=== PATIENT | male | born 1945 | race Caucasian/White ===

== ENCOUNTER 2018-11-09 19:44 | Inpatient (IN) ==
[2018-11-10] MEDS: DEXTROSE 5% NACL 0.45% 1,000 ML IV SCH ×3 (02:19→15:05)
[2018-11-10] MEDS: cefOXitin 1,000 MG in SYRINGE 1 EACH IV SCH (02:19)
[2018-11-10] MEDS: VANCOMYCIN INJ 1,250 MG in SODIUM CHLORIDE 0.9% 250 ML IV SCH ×2 (02:23→15:03)
[2018-11-10 04:49] LABS: Basophils % 0.1 % (0.0-0.8); Eosinophils % 0.3 % (0.00-10.9); Hematocrit 29.6 VOL% (42.0-52.0); Hemoglobin 9.6 GM/DL (14.0-18.0); Immature Granulocytes Absolute 0.07 #; Lymphocytes # 0.4 10*3/uL (1.4-4.0); Lymphocytes % 5.5 % (21.2-54.2); Mean Corpuscular HGB Conc 32.4 GM/DL (32-36); Mean Corpuscular Volume 98.7 FL (87-102); Mean Platelet Volume 10.5 FL (9.6-12.0); Monocytes % 1.5 % (1.7-12.7); Neutrophils % 91.6 % (38.7-73.9); Platelet Count 181 T/CUMM (130-400); Red Cell Distribution Width 13.7 % (9.3-17.3); White Blood Count 6.9 T/CUMM (4-12)
[2018-11-10 05:13] LABS: Calcium 7.9 MG/DL (8.5-10.1); Osmolality,Calculated 275.8 MOS/KG (273-304)
[2018-11-10 05:23] LABS: Band Neutrophils 1 % (0-10); Lymphocytes 5 % (20-55); Platelet Estimate Adequate; Polychromasia Few; Segmented Neutrophils 91 % (50-85); Total Cells Counted 100
[2018-11-10] MEDS ORDERED: LIDOCAINE 1%/EPI INJ 20 ML VIAL ONE (08:55)
[2018-11-10] MEDS ORDERED: BUPIVACAINE 0.25% /EPI 10 ML VIAL ONE (08:55)
[2018-11-10] MEDS ORDERED: PROPOFOL 1,000 MG/100 ML BOTTLE IV ONE (11:41)
[2018-11-10] MEDS ORDERED: ALBUMIN 5% 12.5 GM in PREMIX 1 EACH IV ONE (12:13)
[2018-11-10] MEDS ORDERED: ONDANSETRON 4 MG/2 ML VIAL IV PRN (12:16)
[2018-11-10 12:18] LABS: Amorphous Crystals,Urine Occasional /HPF (Few); Apearance,Urine Slightly Hazy (Clear); Bacteria,Urine Occasional /HPF (Few); Bilirubin,Urine Negative (Negative); Blood, Urine Large mg/dL (Negative); Glucose,Urine (UA) Negative (Negative); Ketones,Urine Negative (Negative); Mucus,Urine Few /LPF (Occasional); Nitrite,Urine Negative (Negative); Protein,Urine 30 MG/DL; RBC,Urine 122 /HPF (0-4); Squamous Epithelial Cell,Urine Occasional /HPF (0-10); Urine Color Yellow (Yellow); Urine Specific Gravity 1.038 (1.001-1.035); Urine Urobilinogen < 2.0 EU/DL (0.2-1.0); WBC,Urine 5 /HPF (0-6)
[2018-11-10] MEDS ORDERED: PHENYLEPHRINE DRIP 20 MG/250 ML PREMIX IV ONE (12:19)
[2018-11-10] MEDS ORDERED: SEVOFLURANE 1 UNIT/15 MINUTE INH ONE (12:19)
[2018-11-10] MEDS ORDERED: diphenhydrAMINE 50 MG/1 ML VIAL ONE (12:20)
[2018-11-10] MEDS ORDERED: fentaNYL 100 MCG/2 ML VIAL ONE (12:20)
[2018-11-10] MEDS ORDERED: PHENYLEPHRINE 1 MG/10 ML SYRINGE IV ONE (12:20)
[2018-11-10] MEDS ORDERED: ROCURONIUM 100 MG/10 ML VIAL IV ONE (12:20)
[2018-11-10] MEDS ORDERED: SUCCINYLCHOLINE 200 MG/10 ML VIAL ONE (12:20)
[2018-11-10] MEDS ORDERED: ETOMIDATE 40 MG/20 ML VIAL IV ONE (12:20)
[2018-11-10] MEDS ORDERED: MIDAZOLAM 2 MG/2 ML VIAL ONE (12:20)
[2018-11-10] MEDS ORDERED: HYDROCORTISONE 100 MG VIAL ONE (12:20)
[2018-11-10] MEDS ORDERED: LACTATED RINGERS 2,000 ML IV ONE (12:20)
[2018-11-10] MEDS: PROPOFOL 1,000 MG/100 ML BOTTLE IV SCH (12:30)
[2018-11-10] MEDS: HYDROmorphone 2 MG/1 ML VIAL IV PRN ×2 (12:35→12:40)
[2018-11-10 12:51] LABS: ABG Base Excess -0.7 MMOL/L (-2.5-2.5); ABG HCO3 23.9 MMOL/L (20-26); ABG PCO2 45.9 MM HG (35-48); ABG PH 7.347 (7.35-7.45); ABG TCO2 23.2 MMOL/L (23-27)
[2018-11-10] MEDS: MORPHINE 4 MG/1 ML VIAL IV PRN (13:40)
[2018-11-10] MEDS: DEXTROSE 5% LACTATED RINGERS 1,000 ML IV SCH (13:49)
[2018-11-10 13:53] LABS: Albumin 1.9 G/DL (3.4-5.0); Bilirubin,Total 0.8 MG/DL (0.2-1.0); Osmolality,Calculated 276.1 MOS/KG (273-304); Total Protein 5.4 G/DL (6.4-8.3)
[2018-11-10] MEDS ORDERED: MIDAZOLAM 100 MG in SODIUM CHLORIDE 0.9% 80 ML IV PRN (15:31)
[2018-11-10] MEDS: metroNIDAZOLE INJ 500 MG in PREMIX 1 EACH IV SCH (18:25)
[2018-11-10] MEDS: ZINC OXIDE PASTE 113 GM TUBE TOP SCH (20:32)
[2018-11-11] MEDS: DEXTROSE 5% NACL 0.45% 1,000 ML IV SCH ×3 (00:20→15:33)
[2018-11-11] MEDS: DEXTROSE 5% LACTATED RINGERS 1,000 ML IV SCH ×5 (00:20→17:54)
[2018-11-11] MEDS: metroNIDAZOLE INJ 500 MG in PREMIX 1 EACH IV SCH (02:28)
[2018-11-11] MEDS: VANCOMYCIN INJ 1,250 MG in SODIUM CHLORIDE 0.9% 250 ML IV SCH ×2 (02:29→15:33)
[2018-11-11 03:14] LABS: ABG Base Excess 1.7 MMOL/L (-2.5-2.5); ABG HCO3 25.7 MMOL/L (20-26); ABG PCO2 44.4 MM HG (35-48); ABG PH 7.391 (7.35-7.45); ABG PO2 44.1 MM HG (80-95); ABG TCO2 25.2 MMOL/L (23-27); Allen Test Positive; Pt O2 Delivery Device Ventilator
[2018-11-11] MEDS: ENOXAPARIN 40 MG/0.4 ML SYRINGE SUBCUT SCH (06:16)
[2018-11-11 07:43] LABS: Hematocrit 24.7 VOL% (42.0-52.0); Hemoglobin 7.7 GM/DL (14.0-18.0); Immature Granulocytes % 0.9 %; Immature Granulocytes Absolute 0.03 #; Lymphocytes # 0.5 10*3/uL (1.4-4.0); Mean Corpuscular HGB Conc 31.2 GM/DL (32-36); Mean Corpuscular Volume 100.8 FL (87-102); Mean Platelet Volume 10.3 FL (9.6-12.0); Monocytes % 3.8 % (1.7-12.7); Neutrophils % 82.3 % (38.7-73.9); Platelet Count 142 T/CUMM (130-400); Red Blood Count 2.45 MC/CUMM (3.8-5.5); Red Cell Distribution Width 13.7 % (9.3-17.3); White Blood Count 3.5 T/CUMM (4-12)
[2018-11-11 08:03] LABS: Band Neutrophils 1 % (0-10); Hypochromasia 1+; Lymphocytes 11 % (20-55); Platelet Estimate Adequate; Segmented Neutrophils 85 % (50-85); Total Cells Counted 100
[2018-11-11 08:11] LABS: Calcium 7.8 MG/DL (8.5-10.1); Osmolality,Calculated 290.3 MOS/KG (273-304)
[2018-11-11 09:09] LABS: ABG Base Excess 3.1 MMOL/L (-2.5-2.5); ABG HCO3 27.2 MMOL/L (20-26); ABG Oxygen Saturation 99.6 % (95-100); ABG PCO2 34.8 MM HG (35-48); ABG PH 7.487 (7.35-7.45); ABG TCO2 24.5 MMOL/L (23-27); Allen Test Positive; Pt O2 Delivery Device Ventilator
[2018-11-11] MEDS: FAMOTIDINE 20 MG/2 ML VIAL IV SCH ×2 (09:18→21:42)
[2018-11-11] MEDS: ZINC OXIDE PASTE 113 GM TUBE TOP SCH ×2 (09:23→21:42)
[2018-11-11] MEDS: methylPREDNISolone SOD SUC 40 MG/1 ML VIAL IV SCH ×2 (09:31→17:02)
[2018-11-11] MEDS ORDERED: LEVOFLOXACIN INJ 500 MG in PREMIX 1 EACH IV ONE (10:00)
[2018-11-11] MEDS: cefOXitin 1,000 MG in SYRINGE 1 EACH IV SCH (10:39)
[2018-11-11] MEDS: PROPOFOL 1,000 MG/100 ML BOTTLE IV SCH (12:42)
[2018-11-11] MEDS: MORPHINE 4 MG/1 ML VIAL IV PRN ×3 (13:25→22:38)
[2018-11-12] MEDS: methylPREDNISolone SOD SUC 40 MG/1 ML VIAL IV SCH ×3 (00:08→16:15)
[2018-11-12] MEDS: PROPOFOL 1,000 MG/100 ML BOTTLE IV SCH (00:10)
[2018-11-12] MEDS: DEXTROSE 5% NACL 0.45% 1,000 ML IV SCH ×4 (00:18→23:26)
[2018-11-12] MEDS: VANCOMYCIN INJ 1,250 MG in SODIUM CHLORIDE 0.9% 250 ML IV SCH ×2 (01:30→13:50)
[2018-11-12] MEDS: DEXTROSE 5% LACTATED RINGERS 1,000 ML IV SCH ×4 (01:49→10:35)
[2018-11-12 03:26] LABS: ABG Base Excess 1.9 MMOL/L (-2.5-2.5); ABG HCO3 26.1 MMOL/L (20-26); ABG Oxygen Saturation 99.4 % (95-100); ABG PH 7.497 (7.35-7.45); ABG TCO2 22.9 MMOL/L (23-27); Pt O2 Delivery Device Ventilator
[2018-11-12] MEDS: ENOXAPARIN 40 MG/0.4 ML SYRINGE SUBCUT SCH (06:27)
[2018-11-12 08:08] LABS: Basophils % 0.2 % (0.0-0.8); Hematocrit 28.1 VOL% (42.0-52.0); Immature Granulocytes % 1.5 %; Immature Granulocytes Absolute 0.08 #; Lymphocytes # 0.6 10*3/uL (1.4-4.0); Lymphocytes % 11.2 % (21.2-54.2); Mean Corpuscular Volume 99.6 FL (87-102); Mean Platelet Volume 11.8 FL (9.6-12.0); Monocytes % 2.8 % (1.7-12.7); Neutrophils % 84.3 % (38.7-73.9); Platelet Count 208 T/CUMM (130-400); Red Blood Count 2.82 MC/CUMM (3.8-5.5); Red Cell Distribution Width 14.1 % (9.3-17.3); White Blood Count 5.4 T/CUMM (4-12)
[2018-11-12] MEDS: FAMOTIDINE 20 MG/2 ML VIAL IV SCH ×2 (08:14→21:18)
[2018-11-12] MEDS: ZINC OXIDE PASTE 113 GM TUBE TOP SCH ×2 (08:22→21:25)
[2018-11-12 09:14] LABS: Band Neutrophils 5 % (0-10); Lymphocytes 9 % (20-55); Metamyelocytes 4 %; Segmented Neutrophils 82 % (50-85); Total Cells Counted 100
[2018-11-12 09:17] LABS: Nucleated Red Blood Cells 4 (0-5)
[2018-11-12 09:22] LABS: Burr Cells 1+; Platelet Estimate Normal; Polychromasia Slight
[2018-11-13] MEDS: DEXTROSE 5% LACTATED RINGERS 1,000 ML IV SCH ×2 (00:05→14:32)
[2018-11-13] MEDS: methylPREDNISolone SOD SUC 40 MG/1 ML VIAL IV SCH ×2 (01:01→13:05)
[2018-11-13] MEDS: VANCOMYCIN INJ 1,250 MG in SODIUM CHLORIDE 0.9% 250 ML IV SCH ×2 (02:44→14:44)
[2018-11-13 05:23] LABS: Calcium 7.9 MG/DL (8.5-10.1); Osmolality,Calculated 298.8 MOS/KG (273-304)
[2018-11-13] MEDS: ENOXAPARIN 40 MG/0.4 ML SYRINGE SUBCUT SCH (05:52)
[2018-11-13] MEDS: FAMOTIDINE 20 MG/2 ML VIAL IV SCH ×2 (08:05→20:48)
[2018-11-13] MEDS: DEXTROSE 5% NACL 0.45% 1,000 ML IV SCH (08:10)
[2018-11-13] MEDS: ZINC OXIDE PASTE 113 GM TUBE TOP SCH ×2 (08:11→20:50)
[2018-11-13] MEDS: LEVOFLOXACIN INJ 500 MG in PREMIX 1 EACH IV SCH (10:05)
[2018-11-13] MEDS: metroNIDAZOLE INJ 500 MG in PREMIX 1 EACH IV SCH ×2 (11:21→18:31)
[2018-11-14] MEDS: methylPREDNISolone SOD SUC 40 MG/1 ML VIAL IV SCH (02:32)
[2018-11-14] MEDS: metroNIDAZOLE INJ 500 MG in PREMIX 1 EACH IV SCH (02:35)
[2018-11-14] MEDS: ENOXAPARIN 40 MG/0.4 ML SYRINGE SUBCUT SCH (06:50)
[2018-11-14] MEDS: FAMOTIDINE 20 MG/2 ML VIAL IV SCH ×2 (09:12→21:12)
[2018-11-14] MEDS: LEVOFLOXACIN INJ 500 MG in PREMIX 1 EACH IV SCH (09:16)
[2018-11-14] MEDS: ZINC OXIDE PASTE 113 GM TUBE TOP SCH ×2 (09:16→21:11)
[2018-11-14] MEDS: DEXTROSE 5% LACTATED RINGERS 1,000 ML IV SCH (10:54)
[2018-11-14] MEDS: MEROPENEM 1,000 MG in SODIUM CHLORIDE 0.9% 100 ML IV SCH ×2 (11:05→19:21)
[2018-11-14] MEDS ORDERED: VANCOMYCIN INJ 1,250 MG in SODIUM CHLORIDE 0.9% 250 ML IV SCH (12:00)
[2018-11-14 12:56] LABS: % Iron Saturation 109.3 % (18-50); Ferritin 1132.8 ng/ml (26-388)
[2018-11-14 13:20] LABS: Folate 8.2 NG/ML (5.4-24.0)
[2018-11-15] MEDS: MEROPENEM 1,000 MG in SODIUM CHLORIDE 0.9% 100 ML IV SCH ×3 (02:27→18:14)
[2018-11-15] MEDS: DEXTROSE 5% LACTATED RINGERS 1,000 ML IV SCH ×2 (05:31→09:17)
[2018-11-15 05:44] LABS: Basophils % 0.1 % (0.0-0.8); Eosinophils % 0.2 % (0.00-10.9); Hemoglobin 10.3 GM/DL (14.0-18.0); Immature Granulocytes % 1.2 %; Immature Granulocytes Absolute 0.11 #; Lymphocytes # 0.9 10*3/uL (1.4-4.0); Lymphocytes % 10.1 % (21.2-54.2); Mean Corpuscular HGB Conc 31.2 GM/DL (32-36); Mean Corpuscular Volume 101.2 FL (87-102); Mean Platelet Volume 10.4 FL (9.6-12.0); Monocytes % 2.9 % (1.7-12.7); Neutrophils % 85.5 % (38.7-73.9); Platelet Count 217 T/CUMM (130-400); Red Blood Count 3.26 MC/CUMM (3.8-5.5); Red Cell Distribution Width 13.7 % (9.3-17.3); White Blood Count 9.3 T/CUMM (4-12)
[2018-11-15] MEDS: ENOXAPARIN 40 MG/0.4 ML SYRINGE SUBCUT SCH (06:11)
[2018-11-15 06:12] LABS: Anisocytosis 1+; Band Neutrophils 6 % (0-10); Lymphocytes 7 % (20-55); Platelet Estimate Adequate; Segmented Neutrophils 86 % (50-85); Total Cells Counted 100
[2018-11-15 06:17] LABS: Calcium 8.1 MG/DL (8.5-10.1)
[2018-11-15] MEDS: FAMOTIDINE 20 MG/2 ML VIAL IV SCH ×2 (08:48→21:26)
[2018-11-15] MEDS: ZINC OXIDE PASTE 113 GM TUBE TOP SCH ×2 (09:21→21:26)
[2018-11-15] MEDS ORDERED: FUROSEMIDE 40 MG/4 ML VIAL IV ONE (14:04)
[2018-11-15] MEDS: VANCOMYCIN INJ 1,250 MG in SODIUM CHLORIDE 0.9% 250 ML IV SCH (22:21)
[2018-11-16] MEDS: MEROPENEM 1,000 MG in SODIUM CHLORIDE 0.9% 100 ML IV SCH ×3 (03:29→19:28)
[2018-11-16 05:23] LABS: Basophils % 0.2 % (0.0-0.8); Eosinophils % 0.6 % (0.00-10.9); Hematocrit 27.9 VOL% (42.0-52.0); Hemoglobin 8.8 GM/DL (14.0-18.0); Immature Granulocytes % 2.6 %; Immature Granulocytes Absolute 0.16 #; Lymphocytes # 0.9 10*3/uL (1.4-4.0); Lymphocytes % 13.6 % (21.2-54.2); Mean Corpuscular HGB Conc 31.5 GM/DL (32-36); Mean Corpuscular Volume 101.1 FL (87-102); Mean Platelet Volume 10.6 FL (9.6-12.0); Monocytes % 3.2 % (1.7-12.7); Neutrophils % 79.8 % (38.7-73.9); Platelet Count 173 T/CUMM (130-400); Red Blood Count 2.76 MC/CUMM (3.8-5.5); Red Cell Distribution Width 13.8 % (9.3-17.3); White Blood Count 6.2 T/CUMM (4-12)
[2018-11-16 05:38] LABS: Calcium 7.8 MG/DL (8.5-10.1); Osmolality,Calculated 282.4 MOS/KG (273-304)
[2018-11-16 05:55] LABS: Anisocytosis 1+; Platelet Estimate Adequate
[2018-11-16] MEDS: ENOXAPARIN 40 MG/0.4 ML SYRINGE SUBCUT SCH (06:26)
[2018-11-16] MEDS: ZINC OXIDE PASTE 113 GM TUBE TOP SCH ×2 (09:32→20:33)
[2018-11-16] MEDS: FAMOTIDINE 20 MG/2 ML VIAL IV SCH ×2 (09:32→20:31)
[2018-11-16] MEDS ORDERED: POTASSIUM CHLORIDE 20 MEQ TABLET PO ONE (13:05)
[2018-11-17] MEDS: MEROPENEM 1,000 MG in SODIUM CHLORIDE 0.9% 100 ML IV SCH ×2 (02:31→11:53)
[2018-11-17] MEDS: ENOXAPARIN 40 MG/0.4 ML SYRINGE SUBCUT SCH (06:12)
[2018-11-17] MEDS: FAMOTIDINE 20 MG/2 ML VIAL IV SCH (09:23)
[2018-11-17] MEDS: ZINC OXIDE PASTE 113 GM TUBE TOP SCH (09:23)
[2018-11-17 15:57] VITALS: BP 148/73
== END 2018-11-17 16:10 | disposition swing bed (61) | DRG 329 ==
LOC: N.3E 20:59 → N.ICU 11-10 12:55 → N.3E 11-13 15:16
PROVIDERS: ADMIT Surgery; ATTEND Surgery

== ENCOUNTER 2018-11-28 09:37 | Inpatient (IN) ==
[2018-11-28] MEDS ORDERED: ONDANSETRON 4 MG/2 ML VIAL IV PRN (14:14)
[2018-11-28] MEDS ORDERED: ACETAMINOPHEN 325 MG TABLET PO PRN (14:14)
[2018-11-28 15:36] LABS: Basophils % 0.9 % (0.0-0.8); Eosinophils % 1.9 % (0.00-10.9); Hematocrit 26.8 VOL% (42.0-52.0); Hemoglobin 8.3 GM/DL (14.0-18.0); Immature Granulocytes % 0.9 %; Immature Granulocytes Absolute 0.01 #; Lymphocytes # 0.5 10*3/uL (1.4-4.0); Lymphocytes % 41.7 % (21.2-54.2); Mean Corpuscular Volume 102.7 FL (87-102); Mean Platelet Volume 9.6 FL (9.6-12.0); Monocytes % 4.6 % (1.7-12.7); Platelet Count 148 T/CUMM (130-400); Red Blood Count 2.61 MC/CUMM (3.8-5.5); Red Cell Distribution Width 13.7 % (9.3-17.3); White Blood Count 1.1 T/CUMM (4-12)
[2018-11-28 16:10] LABS: Albumin 2.1 G/DL (3.4-5.0); Bilirubin,Total 0.4 MG/DL (0.2-1.0); Calcium 8.3 MG/DL (8.5-10.1); Osmolality,Calculated 276.8 MOS/KG (273-304); Total Protein 6.5 G/DL (6.4-8.3)
[2018-11-28 17:31] LABS: Apearance,Urine CLEAR (Clear); Bilirubin,Urine Negative (Negative); Blood, Urine Small mg/dL (Negative); Glucose,Urine (UA) Negative (Negative); Hyaline Casts,Urine 4 /LPF (0-3); Ketones,Urine Negative (Negative); Mucus,Urine Occasional /LPF (Occasional); Nitrite,Urine Negative (Negative); Protein,Urine Negative; RBC,Urine 5 /HPF (0-4); Squamous Epithelial Cell,Urine Occasional /HPF (0-10); Urine Color Yellow (Yellow); Urine Specific Gravity 1.015 (1.001-1.035); Urine Urobilinogen < 2.0 EU/DL (<2.0); WBC,Urine 1 /HPF (0-6)
[2018-11-28 18:48] LABS: Band Neutrophils 2 % (0-10); Eosinophils 2 % (0-10); Lymphocytes 45 % (20-55); Macrocytosis 2+; Segmented Neutrophils 45 % (50-85); Total Cells Counted 100
[2018-11-28 18:49] LABS: Platelet Estimate Adequate; Polychromasia Slight
[2018-11-28 18:54] LABS: % Iron Saturation 10.2 % (18-50); Ferritin 925.7 ng/ml (26-388)
[2018-11-28] MEDS ORDERED: SODIUM CHLORIDE 0.9% 500 ML IV ONE (20:32)
[2018-11-29 05:34] LABS: Eosinophils % 2.9 % (0.00-10.9); Hematocrit 22.9 VOL% (42.0-52.0); Hemoglobin 7.4 GM/DL (14.0-18.0); Immature Granulocytes Absolute 0.01 #; Lymphocytes # 0.6 10*3/uL (1.4-4.0); Lymphocytes % 61.5 % (21.2-54.2); Mean Corpuscular HGB Conc 32.3 GM/DL (32-36); Mean Corpuscular Volume 99.1 FL (87-102); Mean Platelet Volume 10.1 FL (9.6-12.0); Monocytes % 6.7 % (1.7-12.7); Neutrophils % 27.9 % (38.7-73.9); Platelet Count 144 T/CUMM (130-400); Red Blood Count 2.31 MC/CUMM (3.8-5.5); Red Cell Distribution Width 13.4 % (9.3-17.3)
[2018-11-29 05:43] LABS: Albumin 1.9 G/DL (3.4-5.0); Bilirubin,Total 0.8 MG/DL (0.2-1.0); Calcium 8.1 MG/DL (8.5-10.1); Osmolality,Calculated 276.7 MOS/KG (273-304); Risk Ratio 2.36; Thyroid Stimulating Hormone 3.14 uIU/ml (0.358-3.74); Total Protein 5.8 G/DL (6.4-8.3); VLDL CHOLESTEROL 11.2 MG/DL
[2018-11-29 05:55] LABS: Anisocytosis 1+; Platelet Estimate Adequate
[2018-11-29] MEDS: PANTOPRAZOLE 40 MG TABLET PO SCH (08:37)
[2018-11-29] MEDS: CYANOCOBALAMIN 1000 MCG/1 ML VIAL IM SCH (10:51)
[2018-11-29] MEDS: CEFEPIME 1,000 MG in SODIUM CHLORIDE 0.9% 100 ML IV SCH ×2 (12:55→18:06)
[2018-11-29] MEDS: SODIUM CHLORIDE 0.9% 1,000 ML IV SCH ×2 (12:55→20:51)
[2018-11-30] MEDS: CEFEPIME 1,000 MG in SODIUM CHLORIDE 0.9% 100 ML IV SCH ×4 (00:53→19:21)
[2018-11-30] MEDS: SODIUM CHLORIDE 0.9% 1,000 ML IV SCH (05:06)
[2018-11-30 07:25] LABS: Eosinophils % 1.9 % (0.00-10.9); Hematocrit 25.5 VOL% (42.0-52.0); Hemoglobin 7.9 GM/DL (14.0-18.0); Immature Granulocytes % 0.9 %; Immature Granulocytes Absolute 0.01 #; Lymphocytes # 0.7 10*3/uL (1.4-4.0); Lymphocytes % 60.2 % (21.2-54.2); Mean Corpuscular Volume 101.6 FL (87-102); Mean Platelet Volume 9.2 FL (9.6-12.0); Monocytes % 9.3 % (1.7-12.7); Neutrophils % 27.7 % (38.7-73.9); Platelet Count 134 T/CUMM (130-400); Red Blood Count 2.51 MC/CUMM (3.8-5.5); Red Cell Distribution Width 13.5 % (9.3-17.3); White Blood Count 1.1 T/CUMM (4-12)
[2018-11-30 07:54] LABS: Band Neutrophils 1 % (0-10); Eosinophils 3 % (0-10); Hypochromasia 1+; Lymphocytes 58 % (20-55); Platelet Estimate Adequate; Segmented Neutrophils 32 % (50-85); Total Cells Counted 100
[2018-11-30] MEDS: PANTOPRAZOLE 40 MG TABLET PO SCH (08:52)
[2018-11-30] MEDS: FILGRASTIM-SNDZ 480 MCG/0.8 ML SYRINGE SUBCUT SCH (08:53)
[2018-11-30] MEDS: CYANOCOBALAMIN 1000 MCG/1 ML VIAL IM SCH (08:54)
[2018-11-30] MEDS: TRIAMCINOLONE 0.1% CREAM 15 GM TUBE TOP SCH (20:49)
[2018-11-30] MEDS: ESCITALOPRAM 10 MG TABLET PO SCH (20:49)
[2018-11-30] MEDS ORDERED: VANCOMYCIN INJ 1,000 MG in SODIUM CHLORIDE 0.9% 250 ML IV ONE (22:00)
[2018-12-01] MEDS: CEFEPIME 1,000 MG in SODIUM CHLORIDE 0.9% 100 ML IV SCH ×4 (01:30→20:56)
[2018-12-01 04:51] LABS: Basophils % 0.2 % (0.0-0.8); Eosinophils # 0.1 10*3/uL (0.0-0.87); Eosinophils % 1.3 % (0.00-10.9); Hematocrit 23.9 VOL% (42.0-52.0); Hemoglobin 7.6 GM/DL (14.0-18.0); Immature Granulocytes Absolute 0.05 #; Lymphocytes % 20.7 % (21.2-54.2); Mean Corpuscular HGB Conc 31.8 GM/DL (32-36); Mean Corpuscular Volume 99.2 FL (87-102); Mean Platelet Volume 9.4 FL (9.6-12.0); Monocytes % 2.3 % (1.7-12.7); Neutrophils % 74.5 % (38.7-73.9); Platelet Count 148 T/CUMM (130-400); Red Blood Count 2.41 MC/CUMM (3.8-5.5); Red Cell Distribution Width 13.3 % (9.3-17.3); White Blood Count 4.8 T/CUMM (4-12)
[2018-12-01 05:17] LABS: Calcium 8.1 MG/DL (8.5-10.1); Osmolality,Calculated 280.4 MOS/KG (273-304)
[2018-12-01 05:32] LABS: Band Neutrophils 13 % (0-10); Eosinophils 2 % (0-10); Lymphocytes 15 % (20-55); Metamyelocytes 2 %; Myelocytes 1 %; Segmented Neutrophils 64 % (50-85); Total Cells Counted 100
[2018-12-01 05:34] LABS: Hypochromasia 1+; Platelet Estimate Normal; Reactive Lymphocytes 1+
[2018-12-01] MEDS: FILGRASTIM-SNDZ 480 MCG/0.8 ML SYRINGE SUBCUT SCH (09:48)
[2018-12-01] MEDS: CYANOCOBALAMIN 1000 MCG/1 ML VIAL IM SCH (09:49)
[2018-12-01] MEDS: PANTOPRAZOLE 40 MG TABLET PO SCH (09:52)
[2018-12-01] MEDS: TRIAMCINOLONE 0.1% CREAM 15 GM TUBE TOP SCH (09:54)
[2018-12-01] MEDS: VANCOMYCIN INJ 1,250 MG in SODIUM CHLORIDE 0.9% 250 ML IV SCH ×2 (09:57→20:00)
[2018-12-01 12:39] LABS: Anti SS-A Antibodies < 16 EU/ML
[2018-12-01] MEDS: ESCITALOPRAM 10 MG TABLET PO SCH (20:53)
[2018-12-02 04:42] LABS: Basophils % 0.2 % (0.0-0.8); Eosinophils # 0.1 10*3/uL (0.0-0.87); Eosinophils % 1.7 % (0.00-10.9); Hematocrit 24.7 VOL% (42.0-52.0); Hemoglobin 7.6 GM/DL (14.0-18.0); Immature Granulocytes % 3.7 %; Immature Granulocytes Absolute 0.19 #; Lymphocytes # 1.1 10*3/uL (1.4-4.0); Lymphocytes % 21.6 % (21.2-54.2); Mean Corpuscular HGB Conc 30.8 GM/DL (32-36); Mean Corpuscular Volume 99.6 FL (87-102); Mean Platelet Volume 9.7 FL (9.6-12.0); Monocytes % 2.5 % (1.7-12.7); Neutrophils % 70.3 % (38.7-73.9); Platelet Count 158 T/CUMM (130-400); Red Blood Count 2.48 MC/CUMM (3.8-5.5); Red Cell Distribution Width 13.4 % (9.3-17.3); White Blood Count 5.2 T/CUMM (4-12)
[2018-12-02 05:17] LABS: Anisocytosis 1+; Band Neutrophils 15 % (0-10); Hypochromasia 2+; Lymphocytes 17 % (20-55); Macrocytosis 1+; Metamyelocytes 1 %; Ovalocytes 1+; Platelet Estimate Adequate; Segmented Neutrophils 64 % (50-85); Total Cells Counted 100
[2018-12-02] MEDS: TRIAMCINOLONE 0.1% CREAM 15 GM TUBE TOP SCH ×2 (05:48→08:45)
[2018-12-02] MEDS: CEFEPIME 1,000 MG in SODIUM CHLORIDE 0.9% 100 ML IV SCH ×2 (05:49→08:44)
[2018-12-02] MEDS: FILGRASTIM-SNDZ 480 MCG/0.8 ML SYRINGE SUBCUT SCH (08:44)
[2018-12-02] MEDS: CYANOCOBALAMIN 1000 MCG/1 ML VIAL IM SCH (08:44)
[2018-12-02] MEDS: PANTOPRAZOLE 40 MG TABLET PO SCH (08:44)
[2018-12-02] MEDS: VANCOMYCIN INJ 1,250 MG in SODIUM CHLORIDE 0.9% 250 ML IV SCH (10:15)
[2018-12-02] MEDS: LINEZOLID INJ 600 MG in PREMIX 1 EACH IV SCH (14:17)
[2018-12-02] MEDS: ESCITALOPRAM 10 MG TABLET PO SCH (21:20)
[2018-12-03] MEDS: TRIAMCINOLONE 0.1% CREAM 15 GM TUBE TOP SCH ×3 (01:45→21:13)
[2018-12-03] MEDS: LINEZOLID INJ 600 MG in PREMIX 1 EACH IV SCH ×2 (01:46→13:23)
[2018-12-03 06:33] LABS: Basophils % 0.3 % (0.0-0.8); Eosinophils # 0.1 10*3/uL (0.0-0.87); Eosinophils % 1.3 % (0.00-10.9); Hemoglobin 7.7 GM/DL (14.0-18.0); Immature Granulocytes % 1.5 %; Immature Granulocytes Absolute 0.09 #; Lymphocytes # 1.3 10*3/uL (1.4-4.0); Mean Corpuscular HGB Conc 30.8 GM/DL (32-36); Mean Corpuscular Volume 100.4 FL (87-102); Mean Platelet Volume 9.8 FL (9.6-12.0); Neutrophils % 69.9 % (38.7-73.9); Platelet Count 170 T/CUMM (130-400); Red Blood Count 2.49 MC/CUMM (3.8-5.5); Red Cell Distribution Width 13.6 % (9.3-17.3)
[2018-12-03] MEDS ORDERED: SODIUM CHLORIDE 0.9% 250 ML IV ONE (07:29)
[2018-12-03 07:42] LABS: Band Neutrophils 2 % (0-10); Eosinophils 2 % (0-10); Lymphocytes 16 % (20-55); Platelet Estimate Normal; Segmented Neutrophils 75 % (50-85); Total Cells Counted 100
[2018-12-03 07:43] LABS: Hypochromasia 2+; Macrocytosis Slight
[2018-12-03] MEDS: FILGRASTIM-SNDZ 480 MCG/0.8 ML SYRINGE SUBCUT SCH (08:30)
[2018-12-03] MEDS: CYANOCOBALAMIN 1000 MCG/1 ML VIAL IM SCH (08:30)
[2018-12-03] MEDS: PANTOPRAZOLE 40 MG TABLET PO SCH (08:31)
[2018-12-03] MEDS ORDERED: SODIUM CHLORIDE 0.9% 1,000 ML IV PRN (08:54)
[2018-12-03] MEDS: ESCITALOPRAM 10 MG TABLET PO SCH (21:13)
[2018-12-04 06:11] LABS: Basophils % 0.7 % (0.0-0.8); Eosinophils # 0.1 10*3/uL (0.0-0.87); Eosinophils % 1.2 % (0.00-10.9); Hematocrit 28.7 VOL% (42.0-52.0); Hemoglobin 9.3 GM/DL (14.0-18.0); Immature Granulocytes % 5.5 %; Immature Granulocytes Absolute 0.33 #; Lymphocytes # 1.4 10*3/uL (1.4-4.0); Lymphocytes % 23.9 % (21.2-54.2); Mean Corpuscular HGB Conc 32.4 GM/DL (32-36); Mean Corpuscular Volume 96.6 FL (87-102); Mean Platelet Volume 10.2 FL (9.6-12.0); Monocytes % 7.4 % (1.7-12.7); Neutrophils % 61.3 % (38.7-73.9); Platelet Count 171 T/CUMM (130-400); Red Blood Count 2.97 MC/CUMM (3.8-5.5); Red Cell Distribution Width 14.7 % (9.3-17.3)
[2018-12-04 06:35] LABS: Calcium 8.5 MG/DL (8.5-10.1); Osmolality,Calculated 282.1 MOS/KG (273-304)
[2018-12-04] MEDS ORDERED: POTASSIUM CHLORIDE 20 MEQ TABLET PO ONE (07:13)
[2018-12-04 07:27] LABS: Band Neutrophils 3 % (0-10); Lymphocytes 30 % (20-55); Platelet Estimate Normal; Segmented Neutrophils 63 % (50-85); Total Cells Counted 100
[2018-12-04 07:28] LABS: Hypochromasia Slight; Macrocytosis Slight
[2018-12-04] MEDS: PANTOPRAZOLE 40 MG TABLET PO SCH (09:36)
[2018-12-04] MEDS: CYANOCOBALAMIN 1000 MCG/1 ML VIAL IM SCH (09:37)
[2018-12-04] MEDS: TRIAMCINOLONE 0.1% CREAM 15 GM TUBE TOP SCH ×2 (09:39→20:42)
[2018-12-04] MEDS: ESCITALOPRAM 10 MG TABLET PO SCH (20:41)
[2018-12-05 03:56] LABS: Basophils % 1.2 % (0.0-0.8); Eosinophils % 1.2 % (0.00-10.9); Hematocrit 29.9 VOL% (42.0-52.0); Hemoglobin 9.4 GM/DL (14.0-18.0); Immature Granulocytes % 11.4 %; Immature Granulocytes Absolute 0.39 #; Lymphocytes # 1.3 10*3/uL (1.4-4.0); Lymphocytes % 37.4 % (21.2-54.2); Mean Corpuscular HGB Conc 31.4 GM/DL (32-36); Mean Corpuscular Volume 97.1 FL (87-102); Mean Platelet Volume 9.5 FL (9.6-12.0); Neutrophils % 36.8 % (38.7-73.9); Platelet Count 150 T/CUMM (130-400); Red Blood Count 3.08 MC/CUMM (3.8-5.5); Red Cell Distribution Width 14.8 % (9.3-17.3); White Blood Count 3.4 T/CUMM (4-12)
[2018-12-05 04:48] LABS: Calcium 8.2 MG/DL (8.5-10.1); Osmolality,Calculated 280.4 MOS/KG (273-304)
[2018-12-05 05:03] LABS: Band Neutrophils 7 % (0-10); Eosinophils 2 % (0-10); Hypochromasia Slight; Lymphocytes 39 % (20-55); Metamyelocytes 5 %; Platelet Estimate Normal; Segmented Neutrophils 32 % (50-85); Total Cells Counted 100
[2018-12-05] MEDS ORDERED: POTASSIUM CHLORIDE 20 MEQ TABLET PO ONE (09:13)
[2018-12-05] MEDS: TRIAMCINOLONE 0.1% CREAM 15 GM TUBE TOP SCH ×2 (09:40→21:02)
[2018-12-05] MEDS: PANTOPRAZOLE 40 MG TABLET PO SCH (09:40)
[2018-12-05] MEDS: CYANOCOBALAMIN 1000 MCG/1 ML VIAL IM SCH (09:40)
[2018-12-05] MEDS: ESCITALOPRAM 10 MG TABLET PO SCH (21:02)
[2018-12-06 05:05] LABS: Basophils % 0.6 % (0.0-0.8); Eosinophils % 0.6 % (0.00-10.9); Hematocrit 29.8 VOL% (42.0-52.0); Hemoglobin 9.5 GM/DL (14.0-18.0); Immature Granulocytes % 11.3 %; Immature Granulocytes Absolute 0.35 #; Lymphocytes # 1.2 10*3/uL (1.4-4.0); Lymphocytes % 39.7 % (21.2-54.2); Mean Corpuscular HGB Conc 31.9 GM/DL (32-36); Mean Corpuscular Volume 97.4 FL (87-102); Mean Platelet Volume 9.3 FL (9.6-12.0); Monocytes % 7.7 % (1.7-12.7); Neutrophils % 40.1 % (38.7-73.9); Platelet Count 155 T/CUMM (130-400); Red Blood Count 3.06 MC/CUMM (3.8-5.5); Red Cell Distribution Width 14.5 % (9.3-17.3); White Blood Count 3.1 T/CUMM (4-12)
[2018-12-06 05:43] LABS: Band Neutrophils 8 % (0-10); Eosinophils 2 % (0-10); Lymphocytes 34 % (20-55); Myelocytes 3 %; Segmented Neutrophils 45 % (50-85); Total Cells Counted 100
[2018-12-06 05:44] LABS: Hypochromasia 1+; Platelet Estimate Normal
[2018-12-06 05:45] LABS: Macrocytosis Slight
[2018-12-06] MEDS ORDERED: POTASSIUM CHLORIDE 20 MEQ TABLET PO ONE (07:49)
[2018-12-06] MEDS: CYANOCOBALAMIN 1000 MCG/1 ML VIAL IM SCH (10:33)
[2018-12-06] MEDS: PANTOPRAZOLE 40 MG TABLET PO SCH (10:33)
[2018-12-06] MEDS: TRIAMCINOLONE 0.1% CREAM 15 GM TUBE TOP SCH ×2 (10:33→22:45)
[2018-12-06] MEDS: IBUPROFEN 800 MG TABLET PO PRN (19:02)
[2018-12-06] MEDS: ESCITALOPRAM 10 MG TABLET PO SCH (20:54)
[2018-12-07 05:07] LABS: Eosinophils % 0.3 % (0.00-10.9); Hematocrit 28.3 VOL% (42.0-52.0); Hemoglobin 8.9 GM/DL (14.0-18.0); Immature Granulocytes % 11.8 %; Immature Granulocytes Absolute 0.36 #; Lymphocytes # 1.4 10*3/uL (1.4-4.0); Lymphocytes % 45.1 % (21.2-54.2); Mean Corpuscular HGB Conc 31.4 GM/DL (32-36); Mean Corpuscular Volume 97.9 FL (87-102); Mean Platelet Volume 9.9 FL (9.6-12.0); Monocytes % 7.5 % (1.7-12.7); Neutrophils % 34.3 % (38.7-73.9); Platelet Count 153 T/CUMM (130-400); Red Blood Count 2.89 MC/CUMM (3.8-5.5); Red Cell Distribution Width 14.3 % (9.3-17.3); White Blood Count 3.1 T/CUMM (4-12)
[2018-12-07 05:18] LABS: Calcium 8.1 MG/DL (8.5-10.1); Osmolality,Calculated 284.1 MOS/KG (273-304)
[2018-12-07 05:29] LABS: Atypical Lymphocytes Few; Band Neutrophils 5 % (0-10); Hypochromasia 1+; Lymphocytes 54 % (20-55); Macrocytosis Slight; Myelocytes 1 %; Platelet Estimate Adequate; Segmented Neutrophils 35 % (50-85); Total Cells Counted 100
[2018-12-07] MEDS: IBUPROFEN 800 MG TABLET PO PRN (10:15)
[2018-12-07] MEDS: TRIAMCINOLONE 0.1% CREAM 15 GM TUBE TOP SCH (10:16)
[2018-12-07] MEDS: PANTOPRAZOLE 40 MG TABLET PO SCH (10:16)
[2018-12-07 12:17] VITALS: BP 123/65
== END 2018-12-07 13:35 | disposition swing bed (61) | DRG 808 ==
LOC: N.4E 12:43
PROVIDERS: ADMIT Internal Medicine; ATTEND Internal Medicine

== ENCOUNTER 2018-12-22 11:43 | Observation (INO) ==
[2018-12-22] MEDS ORDERED: MEROPENEM 500 MG in SODIUM CHLORIDE 0.9% 100 ML IV STA ×2 (12:43→13:06)
[2018-12-22] MEDS ORDERED: SODIUM CHLORIDE 0.9% 1,000 ML IV STA (13:03)
[2018-12-22 13:27] LABS: Basophils % 0.1 % (0.0-0.8); Hematocrit 25.6 VOL% (42.0-52.0); Hemoglobin 8.2 GM/DL (14.0-18.0); Immature Granulocytes % 0.3 %; Immature Granulocytes Absolute 0.02 #; Lymphocytes # 1.2 10*3/uL (1.4-4.0); Lymphocytes % 17.4 % (21.2-54.2); Mean Corpuscular Volume 97.3 FL (87-102); Mean Platelet Volume 9.5 FL (9.6-12.0); Monocytes % 5.2 % (1.7-12.7); Platelet Count 167 T/CUMM (130-400); Red Blood Count 2.63 MC/CUMM (3.8-5.5); Red Cell Distribution Width 14.7 % (9.3-17.3); White Blood Count 6.8 T/CUMM (4-12)
[2018-12-22 13:52] LABS: Albumin 1.8 G/DL (3.4-5.0); Bilirubin,Total 0.8 MG/DL (0.2-1.0); Calcium 7.8 MG/DL (8.5-10.1); Osmolality,Calculated 279.7 MOS/KG (273-304); Total Protein 6.1 G/DL (6.4-8.3)
[2018-12-22] MEDS ORDERED: ACETAMINOPHEN 325 MG TABLET PO PRN (15:30)
[2018-12-22] MEDS ORDERED: DOCUSATE SODIUM 100 MG CAPSULE PO PRN (15:30)
[2018-12-22] MEDS ORDERED: ONDANSETRON 4 MG/2 ML VIAL IV PRN (15:30)
[2018-12-22] MEDS: NYSTATIN POWDER 15 GM BOTTLE TOP SCH ×2 (16:39→21:17)
[2018-12-22] MEDS: ENOXAPARIN 40 MG/0.4 ML SYRINGE SUBCUT SCH (16:39)
[2018-12-22] MEDS: SODIUM CHLORIDE 0.9% 1,000 ML IV SCH (16:39)
[2018-12-22 16:40] LABS: Apearance,Urine CLEAR (Clear); Bilirubin,Urine Negative (Negative); Blood, Urine Large mg/dL (Negative); Glucose,Urine (UA) Negative (Negative); Ketones,Urine Negative (Negative); Mucus,Urine Occasional /LPF (Occasional); Nitrite,Urine Negative (Negative); Protein,Urine Negative; RBC,Urine 17 /HPF (0-4); Sperm,Urine Occasional /HPF (Negative); Urine Color Yellow (Yellow); Urine Urobilinogen < 2.0 EU/DL (0.2-1.0); WBC,Urine 67 /HPF (0-6)
[2018-12-22] MEDS: MEROPENEM 1,000 MG in SODIUM CHLORIDE 0.9% 100 ML IV SCH (21:16)
[2018-12-23] MEDS: SODIUM CHLORIDE 0.9% 1,000 ML IV SCH ×2 (05:36→19:54)
[2018-12-23] MEDS: MEROPENEM 1,000 MG in SODIUM CHLORIDE 0.9% 100 ML IV SCH ×3 (05:40→21:22)
[2018-12-23 06:22] LABS: Eosinophils % 0.6 % (0.00-10.9); Hematocrit 25.6 VOL% (42.0-52.0); Hemoglobin 7.9 GM/DL (14.0-18.0); Immature Granulocytes % 0.6 %; Immature Granulocytes Absolute 0.03 #; Lymphocytes % 19.1 % (21.2-54.2); Mean Corpuscular HGB Conc 30.9 GM/DL (32-36); Mean Corpuscular Volume 98.1 FL (87-102); Mean Platelet Volume 9.4 FL (9.6-12.0); Monocytes % 4.6 % (1.7-12.7); Neutrophils % 75.1 % (38.7-73.9); Platelet Count 153 T/CUMM (130-400); Red Blood Count 2.61 MC/CUMM (3.8-5.5); Red Cell Distribution Width 14.6 % (9.3-17.3); White Blood Count 5.2 T/CUMM (4-12)
[2018-12-23 06:50] LABS: Calcium 8.3 MG/DL (8.5-10.1); Osmolality,Calculated 281.4 MOS/KG (273-304)
[2018-12-23] MEDS: PANTOPRAZOLE 40 MG TABLET PO SCH (09:16)
[2018-12-23] MEDS: NYSTATIN POWDER 15 GM BOTTLE TOP SCH ×3 (09:21→21:22)
[2018-12-23] MEDS: ENOXAPARIN 40 MG/0.4 ML SYRINGE SUBCUT SCH (15:50)
[2018-12-24 04:51] LABS: Basophils % 0.3 % (0.0-0.8); Eosinophils # 0.1 10*3/uL (0.0-0.87); Eosinophils % 1.3 % (0.00-10.9); Hematocrit 26.6 VOL% (42.0-52.0); Immature Granulocytes % 0.8 %; Immature Granulocytes Absolute 0.03 #; Lymphocytes % 25.4 % (21.2-54.2); Mean Corpuscular HGB Conc 30.1 GM/DL (32-36); Mean Corpuscular Volume 99.3 FL (87-102); Mean Platelet Volume 9.4 FL (9.6-12.0); Monocytes % 5.2 % (1.7-12.7); Platelet Count 183 T/CUMM (130-400); Red Blood Count 2.68 MC/CUMM (3.8-5.5); Red Cell Distribution Width 14.8 % (9.3-17.3); White Blood Count 3.9 T/CUMM (4-12)
[2018-12-24 05:22] LABS: Osmolality,Calculated 281.4 MOS/KG (273-304)
[2018-12-24] MEDS: MEROPENEM 1,000 MG in SODIUM CHLORIDE 0.9% 100 ML IV SCH ×2 (05:37→13:57)
[2018-12-24] MEDS: PANTOPRAZOLE 40 MG TABLET PO SCH (09:50)
[2018-12-24] MEDS: SODIUM CHLORIDE 0.9% 1,000 ML IV SCH (09:51)
[2018-12-24] MEDS: NYSTATIN POWDER 15 GM BOTTLE TOP SCH (09:56)
[2018-12-24 12:29] VITALS: BP 117/76
== END 2018-12-24 15:01 | disposition home health service (06) ==
LOC: EDUNIT# → EDBD → N.EDINP 11:43 → N.ED 11:43 → N.4E 14:51
PROVIDERS: ADMIT Internal Medicine; ATTEND Internal Medicine

== ENCOUNTER 2019-01-06 23:54 | Inpatient (IN) ==
[2019-01-07] MEDS ORDERED: ALBUTEROL 2.5 MG/3 ML NEB RESP TX PRN (01:53)
[2019-01-07 02:21] LABS: Eosinophils % 0.6 % (0.00-10.9); Hematocrit 24.6 VOL% (42.0-52.0); Hemoglobin 7.3 GM/DL (14.0-18.0); Immature Granulocytes % 0.6 %; Immature Granulocytes Absolute 0.03 #; Lymphocytes # 0.9 10*3/uL (1.4-4.0); Lymphocytes % 17.6 % (21.2-54.2); Mean Corpuscular HGB Conc 29.7 GM/DL (32-36); Mean Corpuscular Volume 101.2 FL (87-102); Mean Platelet Volume 8.9 FL (9.6-12.0); Monocytes % 2.8 % (1.7-12.7); Neutrophils % 78.4 % (38.7-73.9); Platelet Count 177 T/CUMM (130-400); Red Blood Count 2.43 MC/CUMM (3.8-5.5); Red Cell Distribution Width 15.5 % (9.3-17.3); White Blood Count 4.9 T/CUMM (4-12)
[2019-01-07] MEDS: metroNIDAZOLE INJ 500 MG in PREMIX 1 EACH IV SCH ×3 (02:22→18:02)
[2019-01-07] MEDS: SODIUM CHLORIDE 0.9% 1,000 ML IV SCH ×3 (02:23→16:35)
[2019-01-07] MEDS ORDERED: AZITHROMYCIN INJ 500 MG in SODIUM CHLORIDE 0.9% 250 ML IV SCH (02:30)
[2019-01-07 02:37] LABS: Calcium 7.7 MG/DL (8.5-10.1); Osmolality,Calculated 279.5 MOS/KG (273-304)
[2019-01-07] MEDS: ALBUTEROL/IPRATROPIUM 3 ML NEB RESP TX SCH ×6 (03:10→23:04)
[2019-01-07 03:12] LABS: ABG Base Excess 1.8 MMOL/L (-2.5-2.5); ABG Oxygen Saturation 95.4 % (95-100); ABG PCO2 41.3 MM HG (35-48); ABG PH 7.415 (7.35-7.45); ABG PO2 82.5 MM HG (80-95); ABG TCO2 24.9 MMOL/L (23-27); Allen Test Positive
[2019-01-07] MEDS: CEFEPIME 1,000 MG in SODIUM CHLORIDE 0.9% 100 ML IV SCH ×4 (03:28→19:55)
[2019-01-07 03:59] LABS: Apearance,Urine Slightly Hazy (Clear); Bilirubin,Urine Negative (Negative); Blood, Urine Large mg/dL (Negative); Glucose,Urine (UA) Negative (Negative); Ketones,Urine Negative (Negative); Mucus,Urine Occasional /LPF (Occasional); Nitrite,Urine Negative (Negative); Protein,Urine 30 MG/DL; RBC,Urine 91 /HPF (0-4); Squamous Epithelial Cell,Urine Occasional /HPF (0-10); Urine Color Yellow (Yellow); Urine Urobilinogen < 2.0 EU/DL (0.2-1.0); WBC,Urine 21 /HPF (0-6)
[2019-01-07] MEDS ORDERED: VANCOMYCIN INJ 1,500 MG in SODIUM CHLORIDE 0.9% 500 ML IV SCH (04:00)
[2019-01-07] MEDS ORDERED: MAGNESIUM SULF RIDER 2 GM in PREMIX 1 EACH IV ONE (08:56)
[2019-01-07] MEDS ORDERED: ONDANSETRON 4 MG/2 ML VIAL IV PRN (13:51)
[2019-01-07] MEDS: NYSTATIN POWDER 15 GM BOTTLE TOP SCH ×2 (17:09→20:34)
[2019-01-07] MEDS: ACETAMINOPHEN 325 MG TABLET PO PRN (20:27)
[2019-01-07] MEDS: ENOXAPARIN 40 MG/0.4 ML SYRINGE SUBCUT SCH (20:33)
[2019-01-07] MEDS: TRIAMCINOLONE 0.1% CREAM 15 GM TUBE TOP SCH (20:58)
[2019-01-08] MEDS ORDERED: SODIUM CHLORIDE 0.9% 500 ML IV ONE
[2019-01-08] MEDS ORDERED: AMIODARONE INJ 450 MG in DEXTROSE 5% 241 ML IV SCH (00:30)
[2019-01-08] MEDS: metroNIDAZOLE INJ 500 MG in PREMIX 1 EACH IV SCH ×3 (01:29→18:17)
[2019-01-08] MEDS: ALBUTEROL/IPRATROPIUM 3 ML NEB RESP TX SCH ×6 (02:41→23:23)
[2019-01-08] MEDS: CEFEPIME 1,000 MG in SODIUM CHLORIDE 0.9% 100 ML IV SCH ×4 (03:20→20:22)
[2019-01-08] MEDS: SODIUM CHLORIDE 0.9% 1,000 ML IV SCH ×4 (04:33→23:58)
[2019-01-08 05:32] LABS: Basophils % 0.3 % (0.0-0.8); Eosinophils # 0.1 10*3/uL (0.0-0.87); Eosinophils % 1.4 % (0.00-10.9); Hematocrit 22.9 VOL% (42.0-52.0); Hemoglobin 6.8 GM/DL (14.0-18.0); Immature Granulocytes % 0.6 %; Immature Granulocytes Absolute 0.02 #; Lymphocytes % 28.9 % (21.2-54.2); Mean Corpuscular HGB Conc 29.7 GM/DL (32-36); Mean Corpuscular Volume 103.2 FL (87-102); Mean Platelet Volume 10.4 FL (9.6-12.0); Monocytes % 5.7 % (1.7-12.7); Neutrophils % 63.1 % (38.7-73.9); Platelet Count 164 T/CUMM (130-400); Red Blood Count 2.22 MC/CUMM (3.8-5.5); Red Cell Distribution Width 15.9 % (9.3-17.3); White Blood Count 3.5 T/CUMM (4-12)
[2019-01-08 05:58] LABS: Calcium 7.9 MG/DL (8.5-10.1)
[2019-01-08 06:23] LABS: Anisocytosis Slight; Macrocytosis Slight
[2019-01-08 06:25] LABS: Platelet Estimate Normal; Stomatocytes Slight
[2019-01-08] MEDS: AMIODARONE INJ 450 MG in DEXTROSE 5% 241 ML IV SCH ×2 (07:40→22:50)
[2019-01-08] MEDS: NYSTATIN POWDER 15 GM BOTTLE TOP SCH ×3 (08:59→20:21)
[2019-01-08] MEDS: TRIAMCINOLONE 0.1% CREAM 15 GM TUBE TOP SCH ×2 (09:00→20:21)
[2019-01-08] MEDS: PANTOPRAZOLE 40 MG TABLET PO SCH (09:00)
[2019-01-08] MEDS ORDERED: SODIUM CHLORIDE 0.9% 1,000 ML IV PRN (10:13)
[2019-01-08] MEDS ORDERED: CALCIUM GLUCONATE 1,000 MG in SODIUM CHLORIDE 0.9% 100 ML IV ONE (11:00)
[2019-01-08] MEDS: guaiFENesin 200 MG/10 ML UDCUP PO PRN ×2 (12:23→21:48)
[2019-01-08 16:58] LABS: Hematocrit 26.4 VOL% (42.0-52.0)
[2019-01-08 16:59] LABS: Hemoglobin 8.4 GM/DL (14.0-18.0)
[2019-01-08] MEDS: ENOXAPARIN 40 MG/0.4 ML SYRINGE SUBCUT SCH (20:21)
[2019-01-08] MEDS: ACETAMINOPHEN 325 MG TABLET PO PRN (22:46)
[2019-01-09] MEDS: metroNIDAZOLE INJ 500 MG in PREMIX 1 EACH IV SCH (01:06)
[2019-01-09] MEDS: CEFEPIME 1,000 MG in SODIUM CHLORIDE 0.9% 100 ML IV SCH ×4 (02:10→20:47)
[2019-01-09] MEDS: ALBUTEROL/IPRATROPIUM 3 ML NEB RESP TX SCH ×6 (02:31→23:57)
[2019-01-09 04:28] LABS: Eosinophils # 0.1 10*3/uL (0.0-0.87); Hematocrit 26.7 VOL% (42.0-52.0); Hemoglobin 8.2 GM/DL (14.0-18.0); Immature Granulocytes Absolute 0.03 #; Lymphocytes # 0.9 10*3/uL (1.4-4.0); Lymphocytes % 30.4 % (21.2-54.2); Mean Corpuscular HGB Conc 30.7 GM/DL (32-36); Mean Corpuscular Volume 99.3 FL (87-102); Mean Platelet Volume 9.4 FL (9.6-12.0); Monocytes % 5.1 % (1.7-12.7); Neutrophils % 60.5 % (38.7-73.9); Platelet Count 164 T/CUMM (130-400); Red Blood Count 2.69 MC/CUMM (3.8-5.5); Red Cell Distribution Width 16.6 % (9.3-17.3)
[2019-01-09 04:39] LABS: Calcium 8.3 MG/DL (8.5-10.1); Osmolality,Calculated 284.1 MOS/KG (273-304)
[2019-01-09] MEDS: SODIUM CHLORIDE 0.9% 1,000 ML IV SCH (05:39)
[2019-01-09] MEDS: CLINDAMYCIN INJ 600 MG in PREMIX 1 EACH IV SCH ×2 (09:09→16:41)
[2019-01-09] MEDS: PANTOPRAZOLE 40 MG TABLET PO SCH (09:11)
[2019-01-09] MEDS: FUROSEMIDE 40 MG/4 ML VIAL IV SCH (09:11)
[2019-01-09] MEDS: AMIODARONE 200 MG TABLET PO SCH (09:12)
[2019-01-09] MEDS ORDERED: POTASSIUM CHLORIDE 20 MEQ TABLET PO ONE (10:31)
[2019-01-09] MEDS: TRIAMCINOLONE 0.1% CREAM 15 GM TUBE TOP SCH ×2 (10:49→20:48)
[2019-01-09] MEDS: NYSTATIN POWDER 15 GM BOTTLE TOP SCH ×3 (10:50→20:48)
[2019-01-09 12:14] LABS: Basophils % 0.3 % (0.0-0.8); Eosinophils # 0.1 10*3/uL (0.0-0.87); Hematocrit 28.7 VOL% (42.0-52.0); Hemoglobin 8.8 GM/DL (14.0-18.0); Immature Granulocytes % 0.6 %; Immature Granulocytes Absolute 0.02 #; Lymphocytes # 0.9 10*3/uL (1.4-4.0); Lymphocytes % 25.8 % (21.2-54.2); Mean Corpuscular HGB Conc 30.7 GM/DL (32-36); Mean Corpuscular Volume 99.7 FL (87-102); Mean Platelet Volume 9.4 FL (9.6-12.0); Monocytes % 4.2 % (1.7-12.7); Neutrophils % 67.1 % (38.7-73.9); Platelet Count 167 T/CUMM (130-400); Red Blood Count 2.88 MC/CUMM (3.8-5.5); Red Cell Distribution Width 16.5 % (9.3-17.3); White Blood Count 3.6 T/CUMM (4-12)
[2019-01-09] MEDS: BACITRACIN OINT 0.9 GM PACK TOP SCH (12:46)
[2019-01-09 13:25] LABS: Sedimentation Rate-Westergren 120 MM/HR (0-20)
[2019-01-09 14:50] LABS: Folate 7.2 NG/ML (5.4-24.0); Vitamin B12 989 PG/ML (211-911)
[2019-01-09] MEDS: guaiFENesin 200 MG/10 ML UDCUP PO PRN (20:48)
[2019-01-09] MEDS: ENOXAPARIN 40 MG/0.4 ML SYRINGE SUBCUT SCH (20:48)
[2019-01-10] MEDS: CLINDAMYCIN INJ 600 MG in PREMIX 1 EACH IV SCH ×4 (00:36→23:38)
[2019-01-10] MEDS: CEFEPIME 1,000 MG in SODIUM CHLORIDE 0.9% 100 ML IV SCH ×4 (01:51→20:04)
[2019-01-10] MEDS: ACETAMINOPHEN 325 MG TABLET PO PRN ×2 (01:54→08:29)
[2019-01-10] MEDS: ALBUTEROL/IPRATROPIUM 3 ML NEB RESP TX SCH ×5 (03:29→19:35)
[2019-01-10 05:04] LABS: Basophils % 0.3 % (0.0-0.8); Eosinophils # 0.1 10*3/uL (0.0-0.87); Eosinophils % 2.3 % (0.00-10.9); Hematocrit 27.1 VOL% (42.0-52.0); Hemoglobin 8.4 GM/DL (14.0-18.0); Immature Granulocytes % 0.3 %; Immature Granulocytes Absolute 0.01 #; Lymphocytes # 0.9 10*3/uL (1.4-4.0); Lymphocytes % 26.8 % (21.2-54.2); Mean Corpuscular Volume 99.6 FL (87-102); Monocytes % 3.7 % (1.7-12.7); Neutrophils % 66.6 % (38.7-73.9); Platelet Count 196 T/CUMM (130-400); Red Blood Count 2.72 MC/CUMM (3.8-5.5); White Blood Count 3.5 T/CUMM (4-12)
[2019-01-10 05:24] LABS: Calcium 8.2 MG/DL (8.5-10.1); Osmolality,Calculated 281.3 MOS/KG (273-304)
[2019-01-10 05:44] LABS: Band Neutrophils 2 % (0-10); Eosinophils 2 % (0-10); Hypochromasia 1+; Lymphocytes 27 % (20-55); Macrocytosis Slight; Platelet Estimate Adequate; Segmented Neutrophils 68 % (50-85); Total Cells Counted 100
[2019-01-10] MEDS: AMIODARONE 200 MG TABLET PO SCH (08:28)
[2019-01-10] MEDS: FUROSEMIDE 40 MG/4 ML VIAL IV SCH (08:29)
[2019-01-10] MEDS: PANTOPRAZOLE 40 MG TABLET PO SCH (08:29)
[2019-01-10] MEDS ORDERED: MAGNESIUM SULF RIDER 2 GM in PREMIX 1 EACH IV PRN (11:20)
[2019-01-10] MEDS ORDERED: MAGNESIUM SULF RIDER 4 GM in PREMIX 1 EACH IV PRN (11:20)
[2019-01-10] MEDS ORDERED: POTASSIUM CHLORIDE 10 MEQ TABLET PO ONE (11:20)
[2019-01-10] MEDS: BACITRACIN OINT 0.9 GM PACK TOP SCH (11:30)
[2019-01-10] MEDS: TRIAMCINOLONE 0.1% CREAM 15 GM TUBE TOP SCH ×2 (11:31→20:05)
[2019-01-10] MEDS: NYSTATIN POWDER 15 GM BOTTLE TOP SCH ×3 (11:31→20:05)
[2019-01-10] MEDS: ENOXAPARIN 40 MG/0.4 ML SYRINGE SUBCUT SCH (20:04)
[2019-01-10] MEDS: DICLOFENAC 1% GEL 100 GM TUBE TOP SCH (20:04)
[2019-01-11] MEDS: ALBUTEROL/IPRATROPIUM 3 ML NEB RESP TX SCH ×7 (00:29→23:54)
[2019-01-11] MEDS: CEFEPIME 1,000 MG in SODIUM CHLORIDE 0.9% 100 ML IV SCH ×4 (01:34→21:49)
[2019-01-11] MEDS: DOCUSATE SODIUM 100 MG CAPSULE PO PRN (03:01)
[2019-01-11] MEDS: ACETAMINOPHEN 325 MG TABLET PO PRN (04:17)
[2019-01-11 05:47] LABS: Basophils % 0.5 % (0.0-0.8); Eosinophils # 0.1 10*3/uL (0.0-0.87); Eosinophils % 1.6 % (0.00-10.9); Hematocrit 28.7 VOL% (42.0-52.0); Hemoglobin 8.7 GM/DL (14.0-18.0); Immature Granulocytes % 0.5 %; Immature Granulocytes Absolute 0.02 #; Lymphocytes # 0.8 10*3/uL (1.4-4.0); Lymphocytes % 18.1 % (21.2-54.2); Mean Corpuscular HGB Conc 30.3 GM/DL (32-36); Mean Corpuscular Volume 98.3 FL (87-102); Monocytes % 3.5 % (1.7-12.7); Neutrophils % 75.8 % (38.7-73.9); Platelet Count 197 T/CUMM (130-400); Red Blood Count 2.92 MC/CUMM (3.8-5.5); Red Cell Distribution Width 15.7 % (9.3-17.3); White Blood Count 4.3 T/CUMM (4-12)
[2019-01-11 06:16] LABS: Calcium 8.1 MG/DL (8.5-10.1); Osmolality,Calculated 277.7 MOS/KG (273-304)
[2019-01-11] MEDS: guaiFENesin 200 MG/10 ML UDCUP PO PRN (07:16)
[2019-01-11 07:59] LABS: Hemoglobin A1 (Alkaline) 97.2 % (96.5-98.5); Hemoglobin A2 (Alkaline) 2.8 % (1.5-3.5)
[2019-01-11] MEDS: POTASSIUM CHLORIDE 10 MEQ TABLET PO SCH (08:49)
[2019-01-11] MEDS: AMIODARONE 200 MG TABLET PO SCH (08:49)
[2019-01-11] MEDS: PANTOPRAZOLE 40 MG TABLET PO SCH (08:50)
[2019-01-11] MEDS: CLINDAMYCIN INJ 600 MG in PREMIX 1 EACH IV SCH ×2 (09:28→15:54)
[2019-01-11] MEDS: FUROSEMIDE 40 MG/4 ML VIAL IV SCH (09:28)
[2019-01-11] MEDS: BACITRACIN OINT 0.9 GM PACK TOP SCH (10:15)
[2019-01-11] MEDS: TRIAMCINOLONE 0.1% CREAM 15 GM TUBE TOP SCH ×2 (10:16→21:50)
[2019-01-11] MEDS: NYSTATIN POWDER 15 GM BOTTLE TOP SCH ×3 (10:16→21:50)
[2019-01-11] MEDS: DICLOFENAC 1% GEL 100 GM TUBE TOP SCH ×3 (10:16→21:51)
[2019-01-11 11:15] LABS: INR 1.1; PT Patient Result 12.1 SECS
[2019-01-11 11:29] LABS: Albumin 1.6 G/DL (3.4-5.0); Total Protein 6.2 G/DL (6.4-8.3)
[2019-01-11 16:12] LABS: Eosinophils,Pleural Fluid 8 %; Lymphocytes,Pleural Fluid 71 %; Neutrophils,Pleural Fluid 21 %; RBC,Pleural Fluid 675 T/CUMM
[2019-01-11] MEDS: ENOXAPARIN 40 MG/0.4 ML SYRINGE SUBCUT SCH (21:49)
[2019-01-12] MEDS: CLINDAMYCIN INJ 600 MG in PREMIX 1 EACH IV SCH ×3 (00:39→17:25)
[2019-01-12] MEDS: CEFEPIME 1,000 MG in SODIUM CHLORIDE 0.9% 100 ML IV SCH ×4 (02:27→20:17)
[2019-01-12] MEDS: ALBUTEROL/IPRATROPIUM 3 ML NEB RESP TX SCH ×6 (04:09→23:33)
[2019-01-12 05:55] LABS: Basophils % 0.3 % (0.0-0.8); Eosinophils # 0.1 10*3/uL (0.0-0.87); Eosinophils % 1.5 % (0.00-10.9); Hematocrit 26.8 VOL% (42.0-52.0); Hemoglobin 8.2 GM/DL (14.0-18.0); Immature Granulocytes % 0.3 %; Immature Granulocytes Absolute 0.01 #; Lymphocytes # 1.2 10*3/uL (1.4-4.0); Lymphocytes % 35.7 % (21.2-54.2); Mean Corpuscular HGB Conc 30.6 GM/DL (32-36); Mean Corpuscular Volume 99.3 FL (87-102); Monocytes % 5.5 % (1.7-12.7); Neutrophils % 56.7 % (38.7-73.9); Platelet Count 177 T/CUMM (130-400); Red Cell Distribution Width 15.8 % (9.3-17.3); White Blood Count 3.3 T/CUMM (4-12)
[2019-01-12 06:29] LABS: Calcium 8.2 MG/DL (8.5-10.1); Osmolality,Calculated 282.4 MOS/KG (273-304)
[2019-01-12] MEDS: FUROSEMIDE 40 MG/4 ML VIAL IV SCH (08:49)
[2019-01-12] MEDS: DOCUSATE SODIUM 100 MG CAPSULE PO PRN (08:49)
[2019-01-12] MEDS: POTASSIUM CHLORIDE 10 MEQ TABLET PO SCH (08:49)
[2019-01-12] MEDS: BACITRACIN OINT 0.9 GM PACK TOP SCH (08:49)
[2019-01-12] MEDS: AMIODARONE 200 MG TABLET PO SCH (08:49)
[2019-01-12] MEDS: PANTOPRAZOLE 40 MG TABLET PO SCH (08:49)
[2019-01-12] MEDS: NYSTATIN POWDER 15 GM BOTTLE TOP SCH ×3 (08:50→20:22)
[2019-01-12] MEDS: DICLOFENAC 1% GEL 100 GM TUBE TOP SCH ×3 (08:50→20:24)
[2019-01-12] MEDS: TRIAMCINOLONE 0.1% CREAM 15 GM TUBE TOP SCH ×2 (08:50→20:26)
[2019-01-12] MEDS: ENOXAPARIN 40 MG/0.4 ML SYRINGE SUBCUT SCH (20:21)
[2019-01-13] MEDS: CLINDAMYCIN INJ 600 MG in PREMIX 1 EACH IV SCH ×2 (00:08→08:09)
[2019-01-13] MEDS: CEFEPIME 1,000 MG in SODIUM CHLORIDE 0.9% 100 ML IV SCH ×2 (01:29→08:07)
[2019-01-13] MEDS: ALBUTEROL/IPRATROPIUM 3 ML NEB RESP TX SCH ×3 (02:42→11:32)
[2019-01-13] MEDS: POTASSIUM CHLORIDE 10 MEQ TABLET PO SCH (08:07)
[2019-01-13] MEDS: PANTOPRAZOLE 40 MG TABLET PO SCH (08:07)
[2019-01-13] MEDS: AMIODARONE 200 MG TABLET PO SCH (08:07)
[2019-01-13] MEDS: FUROSEMIDE 40 MG/4 ML VIAL IV SCH (08:07)
[2019-01-13] MEDS: BACITRACIN OINT 0.9 GM PACK TOP SCH (08:08)
[2019-01-13] MEDS: DICLOFENAC 1% GEL 100 GM TUBE TOP SCH ×2 (08:11→14:17)
[2019-01-13] MEDS: NYSTATIN POWDER 15 GM BOTTLE TOP SCH ×2 (08:12→14:17)
[2019-01-13] MEDS: TRIAMCINOLONE 0.1% CREAM 15 GM TUBE TOP SCH (08:12)
[2019-01-13 16:06] VITALS: BP 118/65
[2019-01-14] MEDS ORDERED: FUROSEMIDE 40 MG TABLET PO SCH (09:00)
== END 2019-01-13 16:30 | disposition swing bed (61) | DRG 194 ==
LOC: N.CC 01-07 00:04 → SUATTDRO 01-07 01:19 → N.5E 01-11 14:56
PROVIDERS: ADMIT Internal Medicine; ATTEND Family Medicine
PROC: IRTHORA (2019-01-11 13:20)

== ENCOUNTER 2019-06-14 20:01 | Inpatient (IN) ==
[2019-06-14] MEDS ORDERED: SODIUM CHLORIDE 0.9% 3,250 ML IV ONE (20:25)
[2019-06-14] MEDS ORDERED: SODIUM CHLORIDE 0.9% 500 ML IV STA (20:37)
[2019-06-14] MEDS ORDERED: SODIUM CHLORIDE 0.9% 1,000 ML IV STA (20:37)
[2019-06-14] MEDS ORDERED: ONDANSETRON 4 MG/2 ML VIAL IV STA (20:38)
[2019-06-14] MEDS ORDERED: PANTOPRAZOLE 40 MG VIAL IV STA (20:38)
[2019-06-14 21:01] LABS: Albumin 2.6 G/DL (3.4-5.0); Bilirubin,Total 0.4 MG/DL (0.2-1.0); Calcium 8.6 MG/DL (8.5-10.1); Osmolality,Calculated 281.1 MOS/KG (273-304); Total Protein 6.7 G/DL (6.4-8.3)
[2019-06-14 22:12] LABS: Basophils % 0.3 % (0.0-0.8); Eosinophils % 0.6 % (0.00-10.9); Hematocrit 25.5 VOL% (42.0-52.0); Hemoglobin 7.9 GM/DL (14.0-18.0); Immature Granulocytes % 2.9 %; Immature Granulocytes Absolute 0.19 #; Lymphocytes # 1.4 10*3/uL (1.4-4.0); Lymphocytes % 21.4 % (21.2-54.2); Mean Corpuscular Volume 104.1 FL (87-102); Monocytes % 5.4 % (1.7-12.7); Neutrophils % 69.4 % (38.7-73.9); Platelet Count 204 T/CUMM (130-400); Red Blood Count 2.45 MC/CUMM (3.8-5.5); Red Cell Distribution Width 18.5 % (9.3-17.3); White Blood Count 6.5 T/CUMM (4-12)
[2019-06-14] MEDS ORDERED: VANCOMYCIN INJ 1,000 MG in SODIUM CHLORIDE 0.9% 250 ML IV STA (22:12)
[2019-06-14 22:50] LABS: Apearance,Urine CLOUDY (Clear); Bilirubin,Urine Negative (Negative); Blood, Urine Large mg/dL (Negative); Glucose,Urine (UA) Negative (Negative); Ketones,Urine Negative (Negative); Mucus,Urine Few /LPF (Occasional); Nitrite,Urine Negative (Negative); Protein,Urine 30 MG/DL; RBC,Urine 61 /HPF (0-4); Squamous Epithelial Cell,Urine Occasional /HPF (0-10); Urine Color Amber (Yellow); Urine Specific Gravity 1.016 (1.001-1.035); Urine Urobilinogen < 2.0 EU/DL (0.2-1.0); WBC,Urine 7 /HPF (0-6)
[2019-06-14] MEDS ORDERED: ACETAMINOPHEN 325 MG TABLET PO PRN (23:44)
[2019-06-14] MEDS ORDERED: diphenhydrAMINE CAP 25 MG CAPSULE PO PRN (23:44)
[2019-06-14] MEDS ORDERED: ONDANSETRON 4 MG/2 ML VIAL IV PRN (23:44)
[2019-06-15] MEDS ORDERED: VANCOMYCIN INJ 1,000 MG in SODIUM CHLORIDE 0.9% 250 ML IV ONE (01:00)
[2019-06-15] MEDS ORDERED: SODIUM CHLORIDE 0.9% 1,000 ML IV SCH (01:30)
[2019-06-15] MEDS: MEROPENEM 500 MG in SODIUM CHLORIDE 0.9% 100 ML IV SCH ×3 (02:36→18:03)
[2019-06-15 05:37] LABS: Basophils % 0.3 % (0.0-0.8); Eosinophils % 0.5 % (0.00-10.9); Hematocrit 22.3 VOL% (42.0-52.0); Hemoglobin 6.9 GM/DL (14.0-18.0); Immature Granulocytes % 1.8 %; Immature Granulocytes Absolute 0.07 #; Lymphocytes # 1.1 10*3/uL (1.4-4.0); Lymphocytes % 27.9 % (21.2-54.2); Mean Corpuscular HGB Conc 30.9 GM/DL (32-36); Mean Corpuscular Volume 103.2 FL (87-102); Mean Platelet Volume 9.7 FL (9.6-12.0); Monocytes % 4.9 % (1.7-12.7); Neutrophils % 64.6 % (38.7-73.9); Platelet Count 147 T/CUMM (130-400); Red Blood Count 2.16 MC/CUMM (3.8-5.5); Red Cell Distribution Width 18.3 % (9.3-17.3); White Blood Count 3.9 T/CUMM (4-12)
[2019-06-15 06:17] LABS: Albumin 2.2 G/DL (3.4-5.0); Bilirubin,Total 0.7 MG/DL (0.2-1.0); Calcium 8.5 MG/DL (8.5-10.1); Osmolality,Calculated 283.7 MOS/KG (273-304); Total Protein 6.3 G/DL (6.4-8.3)
[2019-06-15] MEDS ORDERED: SODIUM CHLORIDE 0.9% 1,000 ML IV PRN (06:36)
[2019-06-15 06:59] LABS: Basophils % 0.3 % (0.0-0.8); Eosinophils % 0.8 % (0.00-10.9); Hematocrit 22.9 VOL% (42.0-52.0); Hemoglobin 6.9 GM/DL (14.0-18.0); Immature Granulocytes % 1.4 %; Immature Granulocytes Absolute 0.05 #; Lymphocytes % 28.1 % (21.2-54.2); Mean Corpuscular HGB Conc 30.1 GM/DL (32-36); Mean Platelet Volume 8.9 FL (9.6-12.0); Monocytes % 4.2 % (1.7-12.7); Neutrophils % 65.2 % (38.7-73.9); Platelet Count 148 T/CUMM (130-400); Red Blood Count 2.18 MC/CUMM (3.8-5.5); Red Cell Distribution Width 18.2 % (9.3-17.3); White Blood Count 3.6 T/CUMM (4-12)
[2019-06-15] MEDS ORDERED: ALBUTEROL 2.5 MG/3 ML NEB RESP TX SCH (07:00)
[2019-06-15 08:03] LABS: Sedimentation Rate-Westergren 139 MM/HR (0-20)
[2019-06-15] MEDS: ESCITALOPRAM 10 MG TABLET PO SCH (08:31)
[2019-06-15] MEDS: PANTOPRAZOLE 40 MG TABLET PO SCH (08:31)
[2019-06-15] MEDS: ENOXAPARIN 40 MG/0.4 ML SYRINGE SUBCUT SCH (08:31)
[2019-06-15] MEDS: AMIODARONE 200 MG TABLET PO SCH (08:31)
[2019-06-15] MEDS: MEGESTROL 400 MG/10 ML UDCUP PO SCH ×2 (08:32→20:10)
[2019-06-15] MEDS: LEVOFLOXACIN 750 MG TABLET PO SCH (08:34)
[2019-06-15 08:41] LABS: Folate 21.1 NG/ML (5.4-24.0); Vitamin B12 761 PG/ML (211-911)
[2019-06-15] MEDS ORDERED: ALBUTEROL 2.5 MG/3 ML NEB RESP TX PRN (10:30)
[2019-06-15 11:52] LABS: Hemoglobin A1 (Alkaline) 97.3 % (96.5-98.5); Hemoglobin A2 (Alkaline) 2.7 % (1.5-3.5)
[2019-06-15] MEDS: ALBUTEROL/IPRATROPIUM 3 ML NEB RESP TX SCH ×2 (15:15→23:37)
[2019-06-15] MEDS ORDERED: VANCOMYCIN INJ 1,750 MG in SODIUM CHLORIDE 0.9% 500 ML IV SCH (19:00)
[2019-06-16] MEDS: MEROPENEM 500 MG in SODIUM CHLORIDE 0.9% 100 ML IV SCH ×3 (02:43→19:46)
[2019-06-16 06:39] LABS: Albumin 2.1 G/DL (3.4-5.0); Bilirubin,Total 0.8 MG/DL (0.2-1.0); Calcium 8.3 MG/DL (8.5-10.1); Osmolality,Calculated 283.7 MOS/KG (273-304); Total Protein 6.2 G/DL (6.4-8.3)
[2019-06-16] MEDS: ALBUTEROL/IPRATROPIUM 3 ML NEB RESP TX SCH ×2 (07:02→14:30)
[2019-06-16] MEDS: ENOXAPARIN 40 MG/0.4 ML SYRINGE SUBCUT SCH (08:38)
[2019-06-16] MEDS: ESCITALOPRAM 10 MG TABLET PO SCH (08:38)
[2019-06-16] MEDS: MEGESTROL 400 MG/10 ML UDCUP PO SCH ×2 (08:39→20:45)
[2019-06-16] MEDS: PANTOPRAZOLE 40 MG TABLET PO SCH (08:39)
[2019-06-16] MEDS: AMIODARONE 200 MG TABLET PO SCH (08:39)
[2019-06-16] MEDS: LEVOFLOXACIN 750 MG TABLET PO SCH (08:39)
[2019-06-16 09:48] LABS: Basophils % 0.2 % (0.0-0.8); Eosinophils % 0.7 % (0.00-10.9); Hematocrit 24.4 VOL% (42.0-52.0); Hemoglobin 7.7 GM/DL (14.0-18.0); Immature Granulocytes % 0.7 %; Immature Granulocytes Absolute 0.03 #; Lymphocytes # 0.8 10*3/uL (1.4-4.0); Lymphocytes % 17.9 % (21.2-54.2); Mean Corpuscular HGB Conc 31.6 GM/DL (32-36); Mean Corpuscular Volume 102.5 FL (87-102); Mean Platelet Volume 9.5 FL (9.6-12.0); Neutrophils % 77.5 % (38.7-73.9); Platelet Count 127 T/CUMM (130-400); Red Blood Count 2.38 MC/CUMM (3.8-5.5); White Blood Count 4.3 T/CUMM (4-12)
[2019-06-16] MEDS ORDERED: SODIUM CHLORIDE 0.9% 1,000 ML IV PRN (10:15)
[2019-06-16] MEDS: DICLOFENAC 1% GEL 100 GM TUBE TOP SCH ×3 (11:35→20:45)
[2019-06-17] MEDS: ALBUTEROL/IPRATROPIUM 3 ML NEB RESP TX SCH ×3 (00:08→14:38)
[2019-06-17] MEDS: MEROPENEM 500 MG in SODIUM CHLORIDE 0.9% 100 ML IV SCH ×2 (02:45→11:36)
[2019-06-17 04:43] LABS: Basophils % 0.3 % (0.0-0.8); Eosinophils % 0.5 % (0.00-10.9); Hematocrit 25.4 VOL% (42.0-52.0); Hemoglobin 8.2 GM/DL (14.0-18.0); Immature Granulocytes % 0.8 %; Immature Granulocytes Absolute 0.03 #; Lymphocytes # 0.8 10*3/uL (1.4-4.0); Mean Corpuscular HGB Conc 32.3 GM/DL (32-36); Mean Corpuscular Volume 96.6 FL (87-102); Mean Platelet Volume 9.3 FL (9.6-12.0); Monocytes % 3.2 % (1.7-12.7); Neutrophils % 74.2 % (38.7-73.9); Platelet Count 123 T/CUMM (130-400); Red Blood Count 2.63 MC/CUMM (3.8-5.5); Red Cell Distribution Width 19.3 % (9.3-17.3); White Blood Count 3.8 T/CUMM (4-12)
[2019-06-17 05:23] LABS: Calcium 8.2 MG/DL (8.5-10.1); Osmolality,Calculated 282.8 MOS/KG (273-304)
[2019-06-17] MEDS ORDERED: MAGNESIUM SULF RIDER 2 GM in PREMIX 1 EACH IV ONE (08:17)
[2019-06-17] MEDS: MEGESTROL 400 MG/10 ML UDCUP PO SCH ×2 (09:21→21:42)
[2019-06-17] MEDS: LEVOFLOXACIN 750 MG TABLET PO SCH (09:22)
[2019-06-17] MEDS: PANTOPRAZOLE 40 MG TABLET PO SCH (09:22)
[2019-06-17] MEDS: AMIODARONE 200 MG TABLET PO SCH (09:22)
[2019-06-17] MEDS: ESCITALOPRAM 10 MG TABLET PO SCH (09:22)
[2019-06-17] MEDS: ENOXAPARIN 40 MG/0.4 ML SYRINGE SUBCUT SCH (09:23)
[2019-06-17] MEDS: DICLOFENAC 1% GEL 100 GM TUBE TOP SCH ×3 (09:59→21:48)
[2019-06-18] MEDS: ALBUTEROL/IPRATROPIUM 3 ML NEB RESP TX SCH ×4 (00:47→22:30)
[2019-06-18 04:43] LABS: Basophils % 0.2 % (0.0-0.8); Hematocrit 25.6 VOL% (42.0-52.0); Hemoglobin 8.3 GM/DL (14.0-18.0); Immature Granulocytes Absolute 0.04 #; Lymphocytes # 0.7 10*3/uL (1.4-4.0); Lymphocytes % 17.2 % (21.2-54.2); Mean Corpuscular HGB Conc 32.4 GM/DL (32-36); Mean Platelet Volume 9.4 FL (9.6-12.0); Monocytes % 2.4 % (1.7-12.7); Neutrophils % 78.2 % (38.7-73.9); Platelet Count 128 T/CUMM (130-400); Red Blood Count 2.64 MC/CUMM (3.8-5.5); Red Cell Distribution Width 19.3 % (9.3-17.3); White Blood Count 4.1 T/CUMM (4-12)
[2019-06-18 05:42] LABS: Calcium 8.4 MG/DL (8.5-10.1); Osmolality,Calculated 283.7 MOS/KG (273-304)
[2019-06-18] MEDS: ENOXAPARIN 40 MG/0.4 ML SYRINGE SUBCUT SCH (09:11)
[2019-06-18] MEDS: DICLOFENAC 1% GEL 100 GM TUBE TOP SCH ×2 (09:11→15:54)
[2019-06-18] MEDS: LEVOFLOXACIN 750 MG TABLET PO SCH (09:12)
[2019-06-18] MEDS: ESCITALOPRAM 10 MG TABLET PO SCH (09:12)
[2019-06-18] MEDS: PANTOPRAZOLE 40 MG TABLET PO SCH (09:12)
[2019-06-18] MEDS: MEGESTROL 400 MG/10 ML UDCUP PO SCH ×2 (09:12→20:58)
[2019-06-18] MEDS: AMIODARONE 200 MG TABLET PO SCH (09:13)
[2019-06-19] MEDS: DICLOFENAC 1% GEL 100 GM TUBE TOP SCH ×3 (02:26→17:24)
[2019-06-19 04:53] LABS: Basophils % 0.3 % (0.0-0.8); Eosinophils # 0.1 10*3/uL (0.0-0.87); Eosinophils % 1.3 % (0.00-10.9); Hematocrit 26.8 VOL% (42.0-52.0); Hemoglobin 8.6 GM/DL (14.0-18.0); Immature Granulocytes % 0.8 %; Immature Granulocytes Absolute 0.03 #; Lymphocytes # 0.8 10*3/uL (1.4-4.0); Lymphocytes % 20.3 % (21.2-54.2); Mean Corpuscular HGB Conc 32.1 GM/DL (32-36); Mean Corpuscular Volume 97.5 FL (87-102); Mean Platelet Volume 9.7 FL (9.6-12.0); Monocytes % 2.4 % (1.7-12.7); Neutrophils % 74.9 % (38.7-73.9); Platelet Count 130 T/CUMM (130-400); Red Blood Count 2.75 MC/CUMM (3.8-5.5); Red Cell Distribution Width 19.8 % (9.3-17.3); White Blood Count 3.7 T/CUMM (4-12)
[2019-06-19 05:08] LABS: Calcium 8.7 MG/DL (8.5-10.1)
[2019-06-19] MEDS: ALBUTEROL/IPRATROPIUM 3 ML NEB RESP TX SCH ×2 (07:29→14:03)
[2019-06-19] MEDS: MEGESTROL 400 MG/10 ML UDCUP PO SCH (08:27)
[2019-06-19] MEDS: ENOXAPARIN 40 MG/0.4 ML SYRINGE SUBCUT SCH (08:27)
[2019-06-19] MEDS: ESCITALOPRAM 10 MG TABLET PO SCH (08:28)
[2019-06-19] MEDS: PANTOPRAZOLE 40 MG TABLET PO SCH (08:28)
[2019-06-19] MEDS: AMIODARONE 200 MG TABLET PO SCH (08:28)
[2019-06-19] MEDS: LEVOFLOXACIN 750 MG TABLET PO SCH (08:28)
[2019-06-19] MEDS ORDERED: TUBERCULIN SKIN TEST 0.1 ML SYRINGE INTRADERM ONE (08:41)
[2019-06-19] MEDS ORDERED: UMECLIDINIUM VILANTEROL INH SCH (09:30)
[2019-06-19] MEDS ORDERED: FUROSEMIDE 40 MG TABLET PO SCH (09:30)
[2019-06-19] MEDS ORDERED: BISACODYL 5 MG TABLET PO SCH (11:00)
[2019-06-19] MEDS ORDERED: NYSTATIN POWDER 15 GM BOTTLE TOP SCH (15:00)
[2019-06-19 16:59] VITALS: BP 158/96
[2019-06-22] MEDS ORDERED: PNEUMOCOCCAL VACCINE (13 VALENT) 0.5 ML SYRINGE IM ONE (00:43)
== END 2019-06-19 19:26 | DRG 871 ==
LOC: EDBD → EDUNIT# → N.ED 20:01 → N.EDINP 23:44 → SUATTDRO 23:44 → N.ICU 06-15 00:06 → N.4E 06-16 10:21
PROVIDERS: ADMIT Internal Medicine; ATTEND Internal Medicine

== ENCOUNTER 2019-07-03 12:49 | Inpatient (IN) ==
[2019-07-03 13:33] LABS: ABG Base Excess 1.8 MMOL/L (-2.5-2.5); ABG Oxygen Saturation 97.7 % (95-100); ABG PCO2 25.1 MM HG (35-48); ABG PO2 86.8 MM HG (80-95); ABG TCO2 20.8 MMOL/L (23-27); Allen Test Positive; Pt O2 Delivery Device Other
[2019-07-03] MEDS ORDERED: SODIUM CHLORIDE 0.9% 1,000 ML IV STA ×2 (14:14→14:40)
[2019-07-03 14:22] LABS: Basophils # 0.1 10*3/uL (0.0-0.2); Basophils % 0.4 % (0.0-0.8); Eosinophils % 0.1 % (0.00-10.9); Hematocrit 33.9 VOL% (42.0-52.0); Hemoglobin 10.7 GM/DL (14.0-18.0); Immature Granulocytes % 7.7 %; Immature Granulocytes Absolute 1.01 #; Lymphocytes # 1.5 10*3/uL (1.4-4.0); Lymphocytes % 11.6 % (21.2-54.2); Mean Corpuscular HGB Conc 31.6 GM/DL (32-36); Mean Corpuscular Volume 100.3 FL (87-102); Monocytes % 2.7 % (1.7-12.7); Neutrophils % 77.5 % (38.7-73.9); Platelet Count 234 T/CUMM (130-400); Red Blood Count 3.38 MC/CUMM (3.8-5.5); Red Cell Distribution Width 19.9 % (9.3-17.3); White Blood Count 13.2 T/CUMM (4-12)
[2019-07-03 14:37] LABS: Albumin 2.1 G/DL (3.4-5.0); Calcium 8.9 MG/DL (8.5-10.1); Osmolality,Calculated 285.1 MOS/KG (273-304)
[2019-07-03 14:39] LABS: INR 1.3; PT Patient Result 13.9 SECS (9.6-12.2)
[2019-07-03] MEDS ORDERED: CLINDAMYCIN INJ 600 MG in PREMIX 1 EACH IV STA (14:39)
[2019-07-03 15:07] LABS: Band Neutrophils 5 % (0-10); Lymphocytes 9 % (20-55); Segmented Neutrophils 83 % (50-85); Total Cells Counted 100
[2019-07-03] MEDS ORDERED: PANTOPRAZOLE 40 MG VIAL IV STA (15:10)
[2019-07-03] MEDS ORDERED: PANTOPRAZOLE 40 MG VIAL IV ONE (15:17)
[2019-07-03] MEDS ORDERED: SODIUM CHLORIDE 0.9% 2,250 ML IV ONE (15:58)
[2019-07-03] MEDS ORDERED: ACETAMINOPHEN 325 MG TABLET PO PRN (16:11)
[2019-07-03] MEDS ORDERED: ALBUTEROL 2.5 MG/3 ML NEB RESP TX PRN (16:11)
[2019-07-03] MEDS: MEROPENEM 500 MG in SODIUM CHLORIDE 0.9% 100 ML IV SCH (17:30)
[2019-07-03] MEDS: SODIUM CHLORIDE 0.9% 1,000 ML IV SCH (17:30)
[2019-07-03 18:14] LABS: Amorphous Crystals,Urine Occasional /HPF (Few); Apearance,Urine CLOUDY (Clear); Bilirubin,Urine Negative (Negative); Blood, Urine Large mg/dL (Negative); Glucose,Urine (UA) Negative (Negative); Ketones,Urine Negative (Negative); Mucus,Urine Occasional /LPF (Occasional); Nitrite,Urine Negative (Negative); Protein,Urine 100 MG/DL; RBC,Urine 1020 /HPF (0-4); Squamous Epithelial Cell,Urine Occasional /HPF (0-10); Urine Color Amber (Yellow); Urine Specific Gravity 1.018 (1.001-1.035); Urine Urobilinogen < 2.0 EU/DL (0.2-1.0); WBC,Urine 182 /HPF (0-6)
[2019-07-03] MEDS: ALBUTEROL/IPRATROPIUM 3 ML NEB RESP TX SCH (20:00)
[2019-07-03] MEDS ORDERED: VANCOMYCIN INJ 1,500 MG in SODIUM CHLORIDE 0.9% 500 ML IV SCH (21:00)
[2019-07-03] MEDS: ENOXAPARIN 30 MG/0.3 ML SYRINGE SUBCUT SCH (21:29)
[2019-07-04] MEDS: ALBUTEROL/IPRATROPIUM 3 ML NEB RESP TX SCH ×3 (01:13→13:41)
[2019-07-04] MEDS: MEROPENEM 500 MG in SODIUM CHLORIDE 0.9% 100 ML IV SCH ×3 (01:30→17:03)
[2019-07-04] MEDS: SODIUM CHLORIDE 0.9% 1,000 ML IV SCH ×3 (03:30→22:28)
[2019-07-04 04:33] LABS: Basophils % 0.2 % (0.0-0.8); Hematocrit 26.6 VOL% (42.0-52.0); Hemoglobin 8.6 GM/DL (14.0-18.0); Immature Granulocytes Absolute 0.23 #; Lymphocytes # 1.4 10*3/uL (1.4-4.0); Lymphocytes % 12.4 % (21.2-54.2); Mean Corpuscular HGB Conc 32.3 GM/DL (32-36); Mean Corpuscular Volume 99.3 FL (87-102); Mean Platelet Volume 10.5 FL (9.6-12.0); Monocytes % 2.7 % (1.7-12.7); Neutrophils % 82.7 % (38.7-73.9); Platelet Count 192 T/CUMM (130-400); Red Blood Count 2.68 MC/CUMM (3.8-5.5); Red Cell Distribution Width 19.9 % (9.3-17.3); White Blood Count 11.3 T/CUMM (4-12)
[2019-07-04 04:58] LABS: Albumin 1.8 G/DL (3.4-5.0); Bilirubin,Total 0.9 MG/DL (0.2-1.0); Calcium 7.6 MG/DL (8.5-10.1); Osmolality,Calculated 294.4 MOS/KG (273-304); Total Protein 5.7 G/DL (6.4-8.3)
[2019-07-04 05:05] LABS: Band Neutrophils 3 % (0-10); Hypochromasia 1+; Lymphocytes 7 % (20-55); Ovalocytes Slight; Platelet Estimate Adequate; Segmented Neutrophils 84 % (50-85); Total Cells Counted 100
[2019-07-04] MEDS ORDERED: PANTOPRAZOLE 40 MG TABLET PO SCH (09:00)
[2019-07-04] MEDS: PANTOPRAZOLE 40 MG TABLET PO SCH (09:15)
[2019-07-04] MEDS ORDERED: ONDANSETRON 4 MG/2 ML VIAL IV PRN (11:54)
[2019-07-04] MEDS: ESCITALOPRAM 10 MG TABLET PO SCH (12:09)
[2019-07-04] MEDS: AMIODARONE 200 MG TABLET PO SCH (12:09)
[2019-07-04] MEDS: VANCOMYCIN INJ 1,500 MG in SODIUM CHLORIDE 0.9% 500 ML IV SCH (22:28)
[2019-07-04] MEDS: ENOXAPARIN 30 MG/0.3 ML SYRINGE SUBCUT SCH (22:29)
[2019-07-05] MEDS: ALBUTEROL/IPRATROPIUM 3 ML NEB RESP TX SCH ×5 (00:50→19:51)
[2019-07-05] MEDS: MEROPENEM 500 MG in SODIUM CHLORIDE 0.9% 100 ML IV SCH ×3 (02:23→16:57)
[2019-07-05 05:51] LABS: Basophils % 0.1 % (0.0-0.8); Eosinophils % 0.1 % (0.00-10.9); Hemoglobin 7.3 GM/DL (14.0-18.0); Immature Granulocytes % 1.9 %; Lymphocytes # 1.1 10*3/uL (1.4-4.0); Lymphocytes % 10.3 % (21.2-54.2); Mean Corpuscular HGB Conc 31.7 GM/DL (32-36); Mean Corpuscular Volume 101.3 FL (87-102); Mean Platelet Volume 10.1 FL (9.6-12.0); Monocytes % 2.1 % (1.7-12.7); Neutrophils % 85.5 % (38.7-73.9); Platelet Count 186 T/CUMM (130-400); Red Blood Count 2.27 MC/CUMM (3.8-5.5); White Blood Count 10.7 T/CUMM (4-12)
[2019-07-05 06:17] LABS: Lymphocytes 14 % (20-55); Segmented Neutrophils 85 % (50-85); Total Cells Counted 100
[2019-07-05 06:18] LABS: Anisocytosis 1+; Macrocytosis 1+; Platelet Estimate Normal
[2019-07-05 06:28] LABS: Calcium 7.8 MG/DL (8.5-10.1); Osmolality,Calculated 287.5 MOS/KG (273-304)
[2019-07-05] MEDS: AMIODARONE 200 MG TABLET PO SCH (08:29)
[2019-07-05] MEDS: SODIUM CHLORIDE 0.9% 1,000 ML IV SCH ×2 (08:29→20:47)
[2019-07-05] MEDS: ESCITALOPRAM 10 MG TABLET PO SCH (08:29)
[2019-07-05] MEDS: PANTOPRAZOLE 40 MG TABLET PO SCH ×2 (08:29→20:50)
[2019-07-05] MEDS ORDERED: SODIUM CHLORIDE 0.9% 1,000 ML IV PRN (10:26)
[2019-07-05 16:39] LABS: Hematocrit 23.7 VOL% (42.0-52.0); Hemoglobin 7.3 GM/DL (14.0-18.0)
[2019-07-05] MEDS: TRIAMCINOLONE 0.1% CREAM 15 GM TUBE TOP SCH (20:49)
[2019-07-05] MEDS: VANCOMYCIN INJ 1,500 MG in SODIUM CHLORIDE 0.9% 500 ML IV SCH (20:50)
[2019-07-06] MEDS: ALBUTEROL/IPRATROPIUM 3 ML NEB RESP TX SCH ×4 (00:05→20:05)
[2019-07-06] MEDS: MEROPENEM 500 MG in SODIUM CHLORIDE 0.9% 100 ML IV SCH ×3 (00:38→16:52)
[2019-07-06 04:53] LABS: Basophils % 0.3 % (0.0-0.8); Eosinophils % 0.4 % (0.00-10.9); Hematocrit 22.9 VOL% (42.0-52.0); Hemoglobin 7.3 GM/DL (14.0-18.0); Immature Granulocytes % 5.1 %; Immature Granulocytes Absolute 0.35 #; Lymphocytes # 1.1 10*3/uL (1.4-4.0); Lymphocytes % 16.7 % (21.2-54.2); Mean Corpuscular HGB Conc 31.9 GM/DL (32-36); Mean Corpuscular Volume 100.9 FL (87-102); Mean Platelet Volume 10.2 FL (9.6-12.0); Monocytes % 3.5 % (1.7-12.7); Platelet Count 179 T/CUMM (130-400); Red Blood Count 2.27 MC/CUMM (3.8-5.5); Red Cell Distribution Width 20.3 % (9.3-17.3); White Blood Count 6.8 T/CUMM (4-12)
[2019-07-06 05:44] LABS: Calcium 7.8 MG/DL (8.5-10.1); Osmolality,Calculated 284.4 MOS/KG (273-304)
[2019-07-06 05:59] LABS: Band Neutrophils 1 % (0-10); Eosinophils 1 % (0-10); Lymphocytes 13 % (20-55); Metamyelocytes 1 %; Segmented Neutrophils 83 % (50-85); Total Cells Counted 100
[2019-07-06 06:00] LABS: Hypochromasia 2+; Platelet Estimate Normal
[2019-07-06] MEDS ORDERED: POTASSIUM CHLORIDE RIDER 10 MEQ in PREMIX 1 EACH IV PRN (07:05)
[2019-07-06] MEDS ORDERED: MAGNESIUM SULF RIDER 4 GM in PREMIX 1 EACH IV PRN (07:05)
[2019-07-06] MEDS ORDERED: MAGNESIUM SULF RIDER 2 GM in PREMIX 1 EACH IV PRN (07:05)
[2019-07-06] MEDS ORDERED: SODIUM CHLORIDE 0.9% 1,000 ML IV PRN (09:31)
[2019-07-06] MEDS: AMIODARONE 200 MG TABLET PO SCH (09:58)
[2019-07-06] MEDS: PANTOPRAZOLE 40 MG TABLET PO SCH ×2 (09:58→21:09)
[2019-07-06] MEDS: ESCITALOPRAM 10 MG TABLET PO SCH (09:58)
[2019-07-06] MEDS: TRIAMCINOLONE 0.1% CREAM 15 GM TUBE TOP SCH ×2 (09:59→21:09)
[2019-07-06] MEDS: SODIUM CHLORIDE 0.9% 1,000 ML IV SCH (10:06)
[2019-07-07] MEDS: MEROPENEM 500 MG in SODIUM CHLORIDE 0.9% 100 ML IV SCH ×2 (00:37→10:12)
[2019-07-07] MEDS: ALBUTEROL/IPRATROPIUM 3 ML NEB RESP TX SCH ×3 (00:40→13:52)
[2019-07-07 02:05] LABS: Hematocrit 29.1 VOL% (42.0-52.0); Hemoglobin 9.3 GM/DL (14.0-18.0)
[2019-07-07 02:25] LABS: Calcium 7.5 MG/DL (8.5-10.1)
[2019-07-07 05:51] LABS: Basophils % 0.4 % (0.0-0.8); Eosinophils % 0.4 % (0.00-10.9); Hematocrit 29.5 VOL% (42.0-52.0); Hemoglobin 9.5 GM/DL (14.0-18.0); Immature Granulocytes % 5.2 %; Immature Granulocytes Absolute 0.27 #; Lymphocytes # 0.9 10*3/uL (1.4-4.0); Lymphocytes % 16.5 % (21.2-54.2); Mean Corpuscular HGB Conc 32.2 GM/DL (32-36); Mean Corpuscular Volume 96.7 FL (87-102); Monocytes % 3.3 % (1.7-12.7); Neutrophils % 74.2 % (38.7-73.9); Platelet Count 180 T/CUMM (130-400); Red Blood Count 3.05 MC/CUMM (3.8-5.5); Red Cell Distribution Width 20.9 % (9.3-17.3); White Blood Count 5.2 T/CUMM (4-12)
[2019-07-07 06:36] LABS: Band Neutrophils 10 % (0-10); Lymphocytes 14 % (20-55); Metamyelocytes 1 %; Myelocytes 1 %; Nucleated Red Blood Cells 1 (0-5); Platelet Estimate Normal; Segmented Neutrophils 72 % (50-85); Total Cells Counted 100
[2019-07-07 06:37] LABS: Anisocytosis 2+
[2019-07-07 06:38] LABS: Microcytosis Slight; Polychromasia Slight; Target Cells Few
[2019-07-07] MEDS: AMIODARONE 200 MG TABLET PO SCH (10:12)
[2019-07-07] MEDS: PANTOPRAZOLE 40 MG TABLET PO SCH (10:12)
[2019-07-07] MEDS: ESCITALOPRAM 10 MG TABLET PO SCH (10:12)
[2019-07-07] MEDS: TRIAMCINOLONE 0.1% CREAM 15 GM TUBE TOP SCH (10:13)
[2019-07-07] MEDS ORDERED: FUROSEMIDE 40 MG/4 ML VIAL IV ONE (10:55)
[2019-07-07 12:26] VITALS: BP 118/61
[2019-07-07] MEDS ORDERED: MEROPENEM 500 MG in SODIUM CHLORIDE 0.9% 100 ML IV SCH (16:00)
== END 2019-07-07 16:42 | DRG 871 ==
LOC: EDUNIT# → EDBD → N.ED 12:49 → N.EDINP 16:11 → N.CC 20:17 → N.5E 07-04 10:49
PROVIDERS: ADMIT Internal Medicine; ATTEND Internal Medicine

== ENCOUNTER 2019-08-10 23:01 | Inpatient (IN) ==
[2019-08-11] MEDS ORDERED: SODIUM CHLORIDE 0.9% 500 ML IV STA (00:02)
[2019-08-11] MEDS ORDERED: PANTOPRAZOLE 40 MG VIAL IV STA (00:02)
[2019-08-11] MEDS ORDERED: ONDANSETRON 4 MG/2 ML VIAL IV STA (00:02)
[2019-08-11 00:25] LABS: Basophils % 0.4 % (0.0-0.8); Eosinophils % 1.4 % (0.00-10.9); Hematocrit 23.7 VOL% (42.0-52.0); Hemoglobin 7.4 GM/DL (14.0-18.0); Immature Granulocytes % 3.2 %; Immature Granulocytes Absolute 0.09 #; Lymphocytes # 0.8 10*3/uL (1.4-4.0); Lymphocytes % 28.6 % (21.2-54.2); Mean Corpuscular HGB Conc 31.2 GM/DL (32-36); Mean Corpuscular Volume 107.2 FL (87-102); Monocytes % 2.8 % (1.7-12.7); Neutrophils % 63.6 % (38.7-73.9); Platelet Count 212 T/CUMM (130-400); Red Blood Count 2.21 MC/CUMM (3.8-5.5); Red Cell Distribution Width 19.9 % (9.3-17.3); White Blood Count 2.8 T/CUMM (4-12)
[2019-08-11 00:33] LABS: INR 1.1; PT Patient Result 11.4 SECS (9.6-12.2)
[2019-08-11 01:10] LABS: Bilirubin,Total 0.6 MG/DL (0.2-1.0); Calcium 8.5 MG/DL (8.5-10.1); Osmolality,Calculated 273.2 MOS/KG (273-304); Total Protein 7.7 G/DL (6.4-8.3)
[2019-08-11] MEDS ORDERED: ALUMINUM/MAGNES/SIMETH MAX STR 30 ML UDCUP PO PRN (03:22)
[2019-08-11] MEDS ORDERED: ACETAMINOPHEN 325 MG TABLET PO PRN (03:22)
[2019-08-11] MEDS ORDERED: MORPHINE 4 MG/1 ML VIAL IV PRN (03:22)
[2019-08-11] MEDS ORDERED: hydrALAZINE 20 MG/1 ML VIAL IV PRN (03:22)
[2019-08-11] MEDS ORDERED: ONDANSETRON 4 MG/2 ML VIAL IV PRN (03:22)
[2019-08-11 04:09] LABS: Apearance,Urine CLOUDY (Clear); Bacteria,Urine Many /HPF (Few); Bilirubin,Urine Negative (Negative); Blood, Urine Large mg/dL (Negative); Glucose,Urine (UA) Negative (Negative); Ketones,Urine Negative (Negative); Mucus,Urine Few /LPF (Occasional); Nitrite,Urine Negative (Negative); Protein,Urine 30 MG/DL; RBC,Urine 135 /HPF (0-4); Urine Specific Gravity 1.011 (1.001-1.035); Urine Urobilinogen < 2.0 EU/DL (0.2-1.0); WBC,Urine 1529 /HPF (0-6)
[2019-08-11 04:10] LABS: Urine Color Dark yellow (Yellow)
[2019-08-11] MEDS ORDERED: SODIUM CHLORIDE 0.9% 1,000 ML IV PRN (04:32)
[2019-08-11] MEDS: SODIUM CHLORIDE 0.9% 1,000 ML IV SCH (04:36)
[2019-08-11 05:32] LABS: Basophils % 0.6 % (0.0-0.8); Eosinophils % 1.3 % (0.00-10.9); Hemoglobin 7.1 GM/DL (14.0-18.0); Immature Granulocytes % 3.2 %; Lymphocytes # 1.1 10*3/uL (1.4-4.0); Mean Corpuscular HGB Conc 32.3 GM/DL (32-36); Mean Corpuscular Volume 105.3 FL (87-102); Mean Platelet Volume 9.1 FL (9.6-12.0); Monocytes % 3.6 % (1.7-12.7); Neutrophils % 57.3 % (38.7-73.9); Platelet Count 211 T/CUMM (130-400); Red Blood Count 2.09 MC/CUMM (3.8-5.5); Red Cell Distribution Width 20.3 % (9.3-17.3); White Blood Count 3.1 T/CUMM (4-12)
[2019-08-11 06:04] LABS: Band Neutrophils 4 % (0-10); Eosinophils 1 % (0-10); Hypochromasia 1+; Lymphocytes 29 % (20-55); Microcytosis Slight; Platelet Estimate Adequate; Segmented Neutrophils 59 % (50-85); Total Cells Counted 100
[2019-08-11 06:18] LABS: Folate 12.5 NG/ML (5.4-24.0); Vitamin B12 621 PG/ML (211-911)
[2019-08-11 07:24] LABS: Sedimentation Rate-Westergren 135 MM/HR (0-20)
[2019-08-11] MEDS: PANTOPRAZOLE 40 MG VIAL IV SCH ×2 (10:41→21:06)
[2019-08-11 15:55] LABS: Hematocrit 20.9 VOL% (42.0-52.0)
[2019-08-11 20:52] LABS: Hematocrit 21.4 VOL% (42.0-52.0); Hemoglobin 7.2 GM/DL (14.0-18.0)
[2019-08-12 05:32] LABS: Hematocrit 19.3 VOL% (42.0-52.0); Hemoglobin 6.7 GM/DL (14.0-18.0)
[2019-08-12] MEDS: SODIUM CHLORIDE 0.9% 1,000 ML IV SCH ×2 (08:27→21:59)
[2019-08-12] MEDS: PANTOPRAZOLE 40 MG VIAL IV SCH ×2 (09:30→21:55)
[2019-08-12 09:49] LABS: Hematocrit 19.4 VOL% (42.0-52.0); Hemoglobin 6.7 GM/DL (14.0-18.0)
[2019-08-12] MEDS ORDERED: SODIUM CHLORIDE 0.9% 1,000 ML IV PRN (10:53)
[2019-08-12 11:20] LABS: Hematocrit 21.5 VOL% (42.0-52.0); Hemoglobin 6.8 GM/DL (14.0-18.0)
[2019-08-12] MEDS: MEROPENEM 500 MG in SODIUM CHLORIDE 0.9% 100 ML IV SCH (21:51)
[2019-08-12 21:54] LABS: Hematocrit 25.3 VOL% (42.0-52.0); Hemoglobin 8.3 GM/DL (14.0-18.0)
[2019-08-13] MEDS: MEROPENEM 500 MG in SODIUM CHLORIDE 0.9% 100 ML IV SCH ×2 (04:06→08:52)
[2019-08-13] MEDS: PANTOPRAZOLE 40 MG VIAL IV SCH ×2 (08:53→21:24)
[2019-08-13] MEDS: cefTRIAXone 1,000 MG in SYRINGE 1 EACH IV SCH (12:20)
[2019-08-13] MEDS: SODIUM CHLORIDE 0.9% 1,000 ML IV SCH (21:23)
[2019-08-14 04:48] LABS: Basophils % 0.3 % (0.0-0.8); Eosinophils # 0.1 10*3/uL (0.0-0.87); Eosinophils % 1.6 % (0.00-10.9); Hemoglobin 8.5 GM/DL (14.0-18.0); Immature Granulocytes Absolute 0.09 #; Lymphocytes # 1.1 10*3/uL (1.4-4.0); Lymphocytes % 36.2 % (21.2-54.2); Mean Corpuscular HGB Conc 32.7 GM/DL (32-36); Mean Corpuscular Volume 99.6 FL (87-102); Mean Platelet Volume 9.2 FL (9.6-12.0); Monocytes % 3.3 % (1.7-12.7); Neutrophils % 55.6 % (38.7-73.9); Platelet Count 174 T/CUMM (130-400); Red Blood Count 2.61 MC/CUMM (3.8-5.5); Red Cell Distribution Width 22.6 % (9.3-17.3)
[2019-08-14 05:06] LABS: Calcium 8.2 MG/DL (8.5-10.1); Osmolality,Calculated 274.1 MOS/KG (273-304)
[2019-08-14 05:12] LABS: Atypical Lymphocytes Few; Band Neutrophils 6 % (0-10); Lymphocytes 40 % (20-55); Segmented Neutrophils 53 % (50-85); Total Cells Counted 100
[2019-08-14 05:13] LABS: Anisocytosis 1+; Microcytosis 1+
[2019-08-14] MEDS: PANTOPRAZOLE 40 MG VIAL IV SCH ×2 (09:00→21:08)
[2019-08-14 09:17] LABS: Hemoglobin A1 (Alkaline) 97.2 % (96.5-98.5); Hemoglobin A2 (Alkaline) 2.8 % (1.5-3.5)
[2019-08-14] MEDS ORDERED: LIDOCAINE 2% 5 ML VIAL ONE (12:59)
[2019-08-14] MEDS ORDERED: propofoL 200 MG/20 ML VIAL IV ONE (12:59)
[2019-08-14] MEDS ORDERED: BISACODYL 5 MG TABLET PO ONE (14:00)
[2019-08-14] MEDS: SODIUM CHLORIDE 0.9% 1,000 ML IV SCH ×2 (14:02→15:12)
[2019-08-14] MEDS: cefTRIAXone 1,000 MG in SYRINGE 1 EACH IV SCH (14:05)
[2019-08-14] MEDS ORDERED: POLYETHYLENE GLYCOL POWDER 255 GM BOTTLE PO ONE (16:00)
[2019-08-15 05:55] LABS: Basophils % 0.4 % (0.0-0.8); Eosinophils # 0.1 10*3/uL (0.0-0.87); Eosinophils % 1.9 % (0.00-10.9); Hematocrit 27.3 VOL% (42.0-52.0); Hemoglobin 8.7 GM/DL (14.0-18.0); Immature Granulocytes % 1.6 %; Immature Granulocytes Absolute 0.04 #; Lymphocytes # 0.8 10*3/uL (1.4-4.0); Lymphocytes % 30.6 % (21.2-54.2); Mean Corpuscular HGB Conc 31.9 GM/DL (32-36); Mean Platelet Volume 8.7 FL (9.6-12.0); Monocytes % 2.7 % (1.7-12.7); Neutrophils % 62.8 % (38.7-73.9); Platelet Count 178 T/CUMM (130-400); Red Blood Count 2.73 MC/CUMM (3.8-5.5); Red Cell Distribution Width 22.2 % (9.3-17.3); White Blood Count 2.6 T/CUMM (4-12)
[2019-08-15] MEDS ORDERED: MAGNESIUM CITRATE 300 ML BOTTLE PO ONE (06:00)
[2019-08-15 06:17] LABS: Hypochromasia 1+; Microcytosis 1+; Platelet Estimate Adequate
[2019-08-15 06:23] LABS: Calcium 8.7 MG/DL (8.5-10.1); Osmolality,Calculated 278.7 MOS/KG (273-304)
[2019-08-15] MEDS: PANTOPRAZOLE 40 MG VIAL IV SCH ×2 (08:25→20:34)
[2019-08-15] MEDS ORDERED: propofoL 200 MG/20 ML VIAL IV ONE (12:30)
[2019-08-15] MEDS ORDERED: LIDOCAINE 2% 5 ML VIAL ONE (12:30)
[2019-08-15] MEDS: cefTRIAXone 1,000 MG in SYRINGE 1 EACH IV SCH (13:21)
[2019-08-15] MEDS: SODIUM CHLORIDE 0.9% 1,000 ML IV SCH (13:22)
[2019-08-16 04:53] LABS: Basophils % 0.4 % (0.0-0.8); Eosinophils # 0.1 10*3/uL (0.0-0.87); Eosinophils % 2.5 % (0.00-10.9); Hematocrit 24.4 VOL% (42.0-52.0); Immature Granulocytes % 1.4 %; Immature Granulocytes Absolute 0.04 #; Lymphocytes # 0.9 10*3/uL (1.4-4.0); Lymphocytes % 32.9 % (21.2-54.2); Mean Corpuscular HGB Conc 32.8 GM/DL (32-36); Mean Corpuscular Volume 98.4 FL (87-102); Mean Platelet Volume 9.2 FL (9.6-12.0); Monocytes % 3.6 % (1.7-12.7); Neutrophils % 59.2 % (38.7-73.9); Platelet Count 177 T/CUMM (130-400); Red Blood Count 2.48 MC/CUMM (3.8-5.5); White Blood Count 2.8 T/CUMM (4-12)
[2019-08-16 05:18] LABS: Calcium 8.5 MG/DL (8.5-10.1)
[2019-08-16 05:19] LABS: Band Neutrophils 3 % (0-10); Eosinophils 3 % (0-10); Hypochromasia 1+; Lymphocytes 27 % (20-55); Microcytosis 1+; Platelet Estimate Adequate; Segmented Neutrophils 66 % (50-85); Total Cells Counted 100
[2019-08-16] MEDS ORDERED: POTASSIUM CHLORIDE 20 MEQ TABLET PO PRN (07:43)
[2019-08-16] MEDS ORDERED: POTASSIUM CHLORIDE RIDER 10 MEQ in PREMIX 1 EACH IV PRN (07:43)
[2019-08-16] MEDS: PANTOPRAZOLE 40 MG VIAL IV SCH (08:55)
[2019-08-16] MEDS: cefTRIAXone 1,000 MG in SYRINGE 1 EACH IV SCH (11:34)
[2019-08-16 12:35] VITALS: BP 122/61
== END 2019-08-16 16:35 | DRG 871 ==
LOC: EDUNIT# → EDBD → N.ED 23:01 → SUATTDRO 08-11 03:22 → N.EDINP 08-11 03:22 → N.4E 08-11 04:31
PROVIDERS: ADMIT Internal Medicine Geriatric Medicine; ATTEND Internal Medicine

== ENCOUNTER 2019-11-13 13:13 | Inpatient (IN) ==
[2019-11-13] MEDS ORDERED: DEXTROSE 50% 25 GM/50 ML VIAL IV PRN (16:07)
[2019-11-13] MEDS ORDERED: GLUCAGON 1 MG VIAL IM PRN (16:07)
[2019-11-13] MEDS ORDERED: ACETAMINOPHEN 325 MG TABLET PO PRN (16:07)
[2019-11-13] MEDS ORDERED: SODIUM CHLORIDE 0.9% 1,000 ML IV PRN (16:15)
[2019-11-13] MEDS ORDERED: BISACODYL 5 MG TABLET PO PRN (16:17)
[2019-11-13 17:04] LABS: Immature Granulocytes Absolute 0.06 #; Lymphocytes # 0.8 10*3/uL (1.4-4.0); Mean Corpuscular HGB Conc 31.7 GM/DL (32-36); Mean Corpuscular Volume 109.2 FL (87-102); Mean Platelet Volume 9.3 FL (9.6-12.0); Platelet Count 123 T/CUMM (130-400); Red Cell Distribution Width 13.9 % (9.3-17.3)
[2019-11-13 17:14] LABS: Albumin 1.5 G/DL (3.4-5.0); Bilirubin,Total 0.5 MG/DL (0.2-1.0); Calcium 8.1 MG/DL (8.5-10.1); Hemoglobin 4.5 GM/DL (14.0-18.0); Osmolality,Calculated 271.5 MOS/KG (273-304); Total Protein 6.9 G/DL (6.4-8.3)
[2019-11-13 17:15] LABS: Hematocrit 14.2 VOL% (42.0-52.0)
[2019-11-13 17:58] LABS: Folate 14.1 NG/ML (5.4-24.0); Vitamin B12 1172 PG/ML (211-911)
[2019-11-13 18:29] LABS: Hypochromasia 2+; Lymphocytes 17 % (20-55); Microcytosis 2+; Platelet Estimate Adequate; Polychromasia 1+; Segmented Neutrophils 83 % (50-85); Total Cells Counted 100
[2019-11-13 18:34] LABS: Sedimentation Rate-Westergren 159 MM/HR (0-20)
[2019-11-13] MEDS: POTASSIUM CHLORIDE 20 MEQ TABLET PO PRN ×2 (20:17→22:37)
[2019-11-13] MEDS: SODIUM CHLORIDE 0.9% 1,000 ML IV SCH (20:20)
[2019-11-13] MEDS: PANTOPRAZOLE 40 MG VIAL IV SCH (21:25)
[2019-11-14] MEDS: POTASSIUM CHLORIDE 20 MEQ TABLET PO PRN (00:56)
[2019-11-14 06:20] LABS: Basophils % 0.3 % (0.0-0.8); Eosinophils % 0.3 % (0.00-10.9); Hemoglobin 7.5 GM/DL (14.0-18.0); Immature Granulocytes Absolute 0.04 #; Lymphocytes # 1.1 10*3/uL (1.4-4.0); Lymphocytes % 27.7 % (21.2-54.2); Mean Corpuscular HGB Conc 31.3 GM/DL (32-36); Mean Corpuscular Volume 104.8 FL (87-102); Monocytes % 2.1 % (1.7-12.7); Neutrophils % 68.6 % (38.7-73.9); Platelet Count 133 T/CUMM (130-400); Red Blood Count 2.29 MC/CUMM (3.8-5.5); Red Cell Distribution Width 16.9 % (9.3-17.3); White Blood Count 3.9 T/CUMM (4-12)
[2019-11-14 06:31] LABS: Albumin 1.4 G/DL (3.4-5.0); Bilirubin,Total 0.7 MG/DL (0.2-1.0); Calcium 7.9 MG/DL (8.5-10.1); Osmolality,Calculated 273.4 MOS/KG (273-304); Total Protein 6.8 G/DL (6.4-8.3)
[2019-11-14 06:48] LABS: Band Neutrophils 2 % (0-10); Lymphocytes 25 % (20-55); Segmented Neutrophils 72 % (50-85); Total Cells Counted 100
[2019-11-14 06:49] LABS: Anisocytosis 1+; Platelet Estimate Normal
[2019-11-14 07:33] LABS: Hematocrit 22.9 VOL% (42.0-52.0); Hemoglobin 7.4 GM/DL (14.0-18.0)
[2019-11-14] MEDS ORDERED: NF- (Umeclidinium-Vilanterol [Anoro Ellipta] 1 inh) INH SCH (09:00)
[2019-11-14] MEDS ORDERED: DOXEPIN 10 MG PO SCH (09:00)
[2019-11-14] MEDS: ESCITALOPRAM 10 MG TABLET PO SCH (09:51)
[2019-11-14] MEDS: AMIODARONE 200 MG TABLET PO SCH (09:51)
[2019-11-14] MEDS: MULTIVITAMIN (CENTRUM) TABLET PO SCH (09:51)
[2019-11-14] MEDS: PANTOPRAZOLE 40 MG VIAL IV SCH ×2 (09:51→21:04)
[2019-11-15] MEDS: SODIUM CHLORIDE 0.9% 1,000 ML IV SCH ×4 (00:34→20:59)
[2019-11-15] MEDS: ONDANSETRON 4 MG/2 ML VIAL IV PRN (04:24)
[2019-11-15 08:05] LABS: Basophils % 0.2 % (0.0-0.8); Hematocrit 19.7 VOL% (42.0-52.0); Immature Granulocytes Absolute 0.04 #; Lymphocytes % 47.6 % (21.2-54.2); Mean Corpuscular HGB Conc 31.5 GM/DL (32-36); Mean Corpuscular Volume 104.8 FL (87-102); Mean Platelet Volume 8.8 FL (9.6-12.0); Monocytes % 2.4 % (1.7-12.7); Neutrophils % 48.8 % (38.7-73.9); Platelet Count 113 T/CUMM (130-400); Red Blood Count 1.88 MC/CUMM (3.8-5.5); White Blood Count 4.1 T/CUMM (4-12)
[2019-11-15 08:06] LABS: Hemoglobin 6.2 GM/DL (14.0-18.0)
[2019-11-15] MEDS ORDERED: SODIUM CHLORIDE 0.9% 1,000 ML IV PRN (08:11)
[2019-11-15 08:20] LABS: Calcium 7.7 MG/DL (8.5-10.1); Osmolality,Calculated 281.7 MOS/KG (273-304)
[2019-11-15 08:31] LABS: Band Neutrophils 1 % (0-10); Hypochromasia 2+; Lymphocytes 33 % (20-55); Microcytosis 1+; Platelet Estimate Decreased; Segmented Neutrophils 61 % (50-85); Total Cells Counted 100
[2019-11-15] MEDS: ESCITALOPRAM 10 MG TABLET PO SCH (08:40)
[2019-11-15] MEDS: MULTIVITAMIN (CENTRUM) TABLET PO SCH (08:40)
[2019-11-15] MEDS: PANTOPRAZOLE 40 MG VIAL IV SCH ×2 (08:40→20:56)
[2019-11-15] MEDS: AMIODARONE 200 MG TABLET PO SCH (08:40)
[2019-11-15 09:10] LABS: Hemoglobin A1 (Alkaline) 97.2 % (96.5-98.5); Hemoglobin A2 (Alkaline) 2.8 % (1.5-3.5)
[2019-11-15] MEDS ORDERED: MAGNESIUM SULF RIDER 4 GM in PREMIX 1 EACH IV PRN (09:16)
[2019-11-15] MEDS: POTASSIUM CHLORIDE 20 MEQ TABLET PO PRN ×3 (11:57→16:19)
[2019-11-15] MEDS: MAGNESIUM SULF RIDER 2 GM in PREMIX 1 EACH IV PRN (11:58)
[2019-11-15 15:30] LABS: Hematocrit 29.5 VOL% (42.0-52.0)
[2019-11-15 15:31] LABS: Hemoglobin 9.1 GM/DL (14.0-18.0)
[2019-11-15] MEDS ORDERED: MAGNESIUM CITRATE 300 ML BOTTLE PO ONE (18:00)
[2019-11-15 23:19] LABS: Hematocrit 36.1 VOL% (42.0-52.0); Hemoglobin 11.1 GM/DL (14.0-18.0)
[2019-11-16 04:29] LABS: Eosinophils % 0.4 % (0.00-10.9); Hematocrit 27.4 VOL% (42.0-52.0); Hemoglobin 8.8 GM/DL (14.0-18.0); Immature Granulocytes % 1.9 %; Immature Granulocytes Absolute 0.05 #; Lymphocytes # 0.9 10*3/uL (1.4-4.0); Lymphocytes % 34.1 % (21.2-54.2); Mean Corpuscular HGB Conc 32.1 GM/DL (32-36); Mean Corpuscular Volume 101.5 FL (87-102); Mean Platelet Volume 8.5 FL (9.6-12.0); Monocytes % 1.9 % (1.7-12.7); Neutrophils % 61.7 % (38.7-73.9); Platelet Count 87 T/CUMM (130-400); Red Cell Distribution Width 18.5 % (9.3-17.3); White Blood Count 2.6 T/CUMM (4-12)
[2019-11-16 04:47] LABS: Calcium 7.7 MG/DL (8.5-10.1)
[2019-11-16 04:54] LABS: Eosinophils 1 % (0-10); Hypochromasia 1+; Lymphocytes 27 % (20-55); Microcytosis Slight; Platelet Estimate Decreased; Segmented Neutrophils 70 % (50-85); Total Cells Counted 100
[2019-11-16] MEDS: POTASSIUM CHLORIDE 20 MEQ TABLET PO PRN (09:26)
[2019-11-16] MEDS: AMIODARONE 200 MG TABLET PO SCH (09:26)
[2019-11-16] MEDS: ESCITALOPRAM 10 MG TABLET PO SCH (09:26)
[2019-11-16] MEDS: MULTIVITAMIN (CENTRUM) TABLET PO SCH (09:26)
[2019-11-16] MEDS: PANTOPRAZOLE 40 MG VIAL IV SCH ×2 (09:27→20:40)
[2019-11-16] MEDS: SODIUM CHLORIDE 0.9% 1,000 ML IV SCH ×2 (09:30→15:23)
[2019-11-16] MEDS ORDERED: VANCOMYCIN INJ 1,000 MG in SODIUM CHLORIDE 0.9% 250 ML IV PRN (13:30)
[2019-11-16 13:39] LABS: Hematocrit 29.8 VOL% (42.0-52.0); Hemoglobin 9.4 GM/DL (14.0-18.0)
[2019-11-16] MEDS: CEFEPIME 1,000 MG in SODIUM CHLORIDE 0.9% 100 ML IV SCH (13:49)
[2019-11-16] MEDS ORDERED: VANCOMYCIN INJ 1,500 MG in SODIUM CHLORIDE 0.9% 500 ML IV ONE (15:00)
[2019-11-16] MEDS ORDERED: HEPARIN 5,000 UNIT/1 ML VIAL SUBCUT SCH (17:00)
[2019-11-16 17:37] LABS: Hematocrit 29.8 VOL% (42.0-52.0); Hemoglobin 9.5 GM/DL (14.0-18.0)
[2019-11-16 23:08] LABS: Hematocrit 34.4 VOL% (42.0-52.0); Hemoglobin 10.7 GM/DL (14.0-18.0)
[2019-11-17] MEDS: CEFEPIME 1,000 MG in SODIUM CHLORIDE 0.9% 100 ML IV SCH ×2 (02:36→20:33)
[2019-11-17 05:01] LABS: Hematocrit 27.9 VOL% (42.0-52.0); Hemoglobin 8.8 GM/DL (14.0-18.0); Immature Granulocytes % 1.6 %; Immature Granulocytes Absolute 0.04 #; Lymphocytes # 0.9 10*3/uL (1.4-4.0); Lymphocytes % 35.2 % (21.2-54.2); Mean Corpuscular HGB Conc 31.5 GM/DL (32-36); Mean Corpuscular Volume 103.3 FL (87-102); Mean Platelet Volume 9.2 FL (9.6-12.0); Neutrophils % 61.2 % (38.7-73.9); Red Cell Distribution Width 17.7 % (9.3-17.3); White Blood Count 2.5 T/CUMM (4-12)
[2019-11-17 05:02] LABS: Platelet Count 92 T/CUMM (130-400)
[2019-11-17 05:15] LABS: Calcium 7.5 MG/DL (8.5-10.1); Osmolality,Calculated 278.8 MOS/KG (273-304)
[2019-11-17 05:30] LABS: Band Neutrophils 3 % (0-10); Eosinophils 1 % (0-10); Hypochromasia 1+; Lymphocytes 33 % (20-55); Microcytosis 1+; Platelet Estimate Decreased; Segmented Neutrophils 62 % (50-85); Total Cells Counted 100
[2019-11-17] MEDS: PANTOPRAZOLE 40 MG VIAL IV SCH ×2 (08:21→20:33)
[2019-11-17] MEDS: MAGNESIUM SULF RIDER 2 GM in PREMIX 1 EACH IV PRN (08:27)
[2019-11-17] MEDS: AMIODARONE 200 MG TABLET PO SCH (08:28)
[2019-11-17] MEDS: POTASSIUM CHLORIDE 20 MEQ TABLET PO PRN ×3 (08:28→13:47)
[2019-11-17] MEDS: MULTIVITAMIN (CENTRUM) TABLET PO SCH (08:28)
[2019-11-17] MEDS: ESCITALOPRAM 10 MG TABLET PO SCH (08:28)
[2019-11-17] MEDS: FERRIC GLUCONATE COMPLEX 125 MG in SODIUM CHLORIDE 0.9% 100 ML IV SCH (11:21)
[2019-11-17] MEDS: SODIUM CHLORIDE 0.9% 1,000 ML IV SCH (22:00)
[2019-11-18 06:08] LABS: Eosinophils % 0.5 % (0.00-10.9); Hematocrit 29.5 VOL% (42.0-52.0); Hemoglobin 9.5 GM/DL (14.0-18.0); Immature Granulocytes Absolute 0.02 #; Lymphocytes # 0.7 10*3/uL (1.4-4.0); Lymphocytes % 31.7 % (21.2-54.2); Mean Corpuscular HGB Conc 32.2 GM/DL (32-36); Mean Corpuscular Volume 100.3 FL (87-102); Mean Platelet Volume 9.2 FL (9.6-12.0); Monocytes % 1.5 % (1.7-12.7); Neutrophils % 65.3 % (38.7-73.9); Red Blood Count 2.94 MC/CUMM (3.8-5.5); Red Cell Distribution Width 17.2 % (9.3-17.3); White Blood Count 2.1 T/CUMM (4-12)
[2019-11-18 06:10] LABS: Platelet Count 92 T/CUMM (130-400)
[2019-11-18] MEDS: ONDANSETRON 4 MG/2 ML VIAL IV PRN ×2 (06:23→10:49)
[2019-11-18 06:45] LABS: Calcium 7.9 MG/DL (8.5-10.1); Ferritin 2794.1 ng/ml (26-388); Osmolality,Calculated 279.7 MOS/KG (273-304)
[2019-11-18 07:42] LABS: Anisocytosis 1+; Band Neutrophils 5 % (0-10); Lymphocytes 31 % (20-55); Macrocytosis 1+; Platelet Estimate Decreased; Segmented Neutrophils 62 % (50-85); Total Cells Counted 100
[2019-11-18] MEDS: AMIODARONE 200 MG TABLET PO SCH (08:21)
[2019-11-18] MEDS: PANTOPRAZOLE 40 MG VIAL IV SCH ×2 (08:21→20:41)
[2019-11-18] MEDS: ESCITALOPRAM 10 MG TABLET PO SCH (08:21)
[2019-11-18] MEDS: MULTIVITAMIN (CENTRUM) TABLET PO SCH (08:21)
[2019-11-18] MEDS: FERRIC GLUCONATE COMPLEX 125 MG in SODIUM CHLORIDE 0.9% 100 ML IV SCH (08:22)
[2019-11-18] MEDS ORDERED: VANCOMYCIN INJ 1,000 MG in SODIUM CHLORIDE 0.9% 250 ML IV ONE (09:00)
[2019-11-18] MEDS: CEFEPIME 1,000 MG in SODIUM CHLORIDE 0.9% 100 ML IV SCH ×2 (10:41→20:41)
[2019-11-19 07:25] LABS: Eosinophils % 1.1 % (0.00-10.9); Hematocrit 26.6 VOL% (42.0-52.0); Hemoglobin 8.2 GM/DL (14.0-18.0); Immature Granulocytes % 1.7 %; Immature Granulocytes Absolute 0.03 #; Lymphocytes # 0.7 10*3/uL (1.4-4.0); Lymphocytes % 36.7 % (21.2-54.2); Mean Corpuscular HGB Conc 30.8 GM/DL (32-36); Mean Corpuscular Volume 103.1 FL (87-102); Mean Platelet Volume 9.2 FL (9.6-12.0); Monocytes % 1.1 % (1.7-12.7); Neutrophils % 59.4 % (38.7-73.9); Red Blood Count 2.58 MC/CUMM (3.8-5.5); Red Cell Distribution Width 17.1 % (9.3-17.3); White Blood Count 1.8 T/CUMM (4-12)
[2019-11-19 07:29] LABS: Platelet Count 95 T/CUMM (130-400)
[2019-11-19 07:54] LABS: Calcium 7.7 MG/DL (8.5-10.1); Osmolality,Calculated 280.7 MOS/KG (273-304)
[2019-11-19 08:24] LABS: Band Neutrophils 3 % (0-10); Eosinophils 2 % (0-10); Lymphocytes 31 % (20-55); Microcytosis Slight; Platelet Estimate Decreased; Segmented Neutrophils 63 % (50-85); Total Cells Counted 100
[2019-11-19] MEDS: CEFEPIME 1,000 MG in SODIUM CHLORIDE 0.9% 100 ML IV SCH (09:03)
[2019-11-19] MEDS: PANTOPRAZOLE 40 MG VIAL IV SCH ×2 (09:48→20:48)
[2019-11-19] MEDS: POTASSIUM CHLORIDE 20 MEQ TABLET PO PRN ×3 (09:49→13:58)
[2019-11-19] MEDS: FERRIC GLUCONATE COMPLEX 125 MG in SODIUM CHLORIDE 0.9% 100 ML IV SCH (09:49)
[2019-11-19] MEDS: AMIODARONE 200 MG TABLET PO SCH (09:49)
[2019-11-19] MEDS: MULTIVITAMIN (CENTRUM) TABLET PO SCH (09:49)
[2019-11-19] MEDS: ESCITALOPRAM 10 MG TABLET PO SCH (09:49)
[2019-11-20 07:10] LABS: Eosinophils % 0.6 % (0.00-10.9); Hematocrit 27.6 VOL% (42.0-52.0); Hemoglobin 8.6 GM/DL (14.0-18.0); Immature Granulocytes % 2.2 %; Immature Granulocytes Absolute 0.04 #; Lymphocytes # 0.7 10*3/uL (1.4-4.0); Lymphocytes % 37.4 % (21.2-54.2); Mean Corpuscular HGB Conc 31.2 GM/DL (32-36); Mean Corpuscular Volume 103.4 FL (87-102); Mean Platelet Volume 8.9 FL (9.6-12.0); Monocytes % 1.7 % (1.7-12.7); Neutrophils % 58.1 % (38.7-73.9); Red Blood Count 2.67 MC/CUMM (3.8-5.5); White Blood Count 1.8 T/CUMM (4-12)
[2019-11-20 07:13] LABS: Platelet Count 87 T/CUMM (130-400)
[2019-11-20 07:41] LABS: Calcium 7.8 MG/DL (8.5-10.1); Osmolality,Calculated 279.7 MOS/KG (273-304)
[2019-11-20 08:02] LABS: Anisocytosis 2+; Eosinophils 2 % (0-10); Macrocytosis 2+; Platelet Estimate Decreased
[2019-11-20 08:03] LABS: Band Neutrophils 4 % (0-10); Lymphocytes 35 % (20-55); Segmented Neutrophils 57 % (50-85); Total Cells Counted 100
[2019-11-20] MEDS: PANTOPRAZOLE 40 MG VIAL IV SCH ×2 (08:15→21:08)
[2019-11-20] MEDS: ESCITALOPRAM 10 MG TABLET PO SCH (08:15)
[2019-11-20] MEDS: MULTIVITAMIN (CENTRUM) TABLET PO SCH (08:15)
[2019-11-20] MEDS: AMIODARONE 200 MG TABLET PO SCH (08:15)
[2019-11-20] MEDS: FUROSEMIDE 40 MG TABLET PO SCH (08:15)
[2019-11-20] MEDS: FERRIC GLUCONATE COMPLEX 125 MG in SODIUM CHLORIDE 0.9% 100 ML IV SCH (09:46)
[2019-11-20] MEDS: POTASSIUM CHLORIDE 20 MEQ TABLET PO PRN ×2 (09:47→13:00)
[2019-11-20] MEDS: ONDANSETRON 4 MG/2 ML VIAL IV PRN (09:55)
[2019-11-20] MEDS: MAGNESIUM SULF RIDER 2 GM in PREMIX 1 EACH IV PRN (11:18)
[2019-11-21] MEDS: MAGNESIUM SULF RIDER 2 GM in PREMIX 1 EACH IV PRN (08:22)
[2019-11-21] MEDS: AMIODARONE 200 MG TABLET PO SCH (08:23)
[2019-11-21] MEDS: POTASSIUM CHLORIDE 20 MEQ TABLET PO PRN (08:23)
[2019-11-21] MEDS: MULTIVITAMIN (CENTRUM) TABLET PO SCH (08:23)
[2019-11-21] MEDS: FUROSEMIDE 40 MG TABLET PO SCH (08:23)
[2019-11-21] MEDS: PANTOPRAZOLE 40 MG VIAL IV SCH (08:23)
[2019-11-21] MEDS: ESCITALOPRAM 10 MG TABLET PO SCH (08:23)
[2019-11-21] MEDS: FERRIC GLUCONATE COMPLEX 125 MG in SODIUM CHLORIDE 0.9% 100 ML IV SCH (11:07)
[2019-11-21 11:52] VITALS: BP 116/55
== END 2019-11-21 14:25 | DRG 177 ==
LOC: SUATTDRO 15:03 → N.TELES 15:03 → N.2E 11-16 14:52
PROVIDERS: ADMIT Internal Medicine; ATTEND Internal Medicine

== ENCOUNTER 2019-12-19 21:13 | Inpatient (IN) ==
[2019-12-19] MEDS ORDERED: SODIUM CHLORIDE 0.9% 1,000 ML IV STA (21:20)
[2019-12-19] MEDS ORDERED: VANCOMYCIN INJ 1,000 MG in SODIUM CHLORIDE 0.9% 250 ML IV STA ×2 (22:27→22:29)
[2019-12-19] MEDS ORDERED: AZITHROMYCIN INJ 500 MG in SODIUM CHLORIDE 0.9% 250 ML IV STA (22:28)
[2019-12-19 22:37] LABS: Basophils % 0.4 % (0.0-0.8); Eosinophils % 0.4 % (0.00-10.9); Hematocrit 19.5 VOL% (42.0-52.0); Immature Granulocytes % 2.1 %; Immature Granulocytes Absolute 0.05 #; Lymphocytes # 0.6 10*3/uL (1.4-4.0); Lymphocytes % 24.7 % (21.2-54.2); Mean Corpuscular HGB Conc 32.3 GM/DL (32-36); Mean Corpuscular Volume 101.6 FL (87-102); Mean Platelet Volume 9.3 FL (9.6-12.0); Monocytes % 2.5 % (1.7-12.7); Neutrophils % 69.9 % (38.7-73.9); Platelet Count 144 T/CUMM (130-400); Red Blood Count 1.92 MC/CUMM (3.8-5.5); Red Cell Distribution Width 16.9 % (9.3-17.3); White Blood Count 2.4 T/CUMM (4-12)
[2019-12-19 22:44] LABS: Hemoglobin 6.3 GM/DL (14.0-18.0)
[2019-12-19] MEDS ORDERED: SODIUM CHLORIDE 0.9% 1,000 ML IV PRN (22:47)
[2019-12-19 22:48] LABS: INR 1.1; PT Patient Result 11.6 SECS (9.8-11.9); Partial Thromboplastin Time 32.4 SECS (23.9-33.8)
[2019-12-19 23:02] LABS: Band Neutrophils 10 % (0-10); Lymphocytes 23 % (20-55); Segmented Neutrophils 67 % (50-85); Total Cells Counted 100
[2019-12-19 23:03] LABS: Anisocytosis Slight; Hypochromasia 1+; Microcytosis 1+; Platelet Estimate Adequate
[2019-12-19 23:12] LABS: Alanine Aminotransferase 31 U/L (16-61); Albumin 1.4 G/DL (3.4-5.0); Alkaline Phosphatase 146 U/L (45-117); Aspartate Amino Transferase 31 U/L (0-37); Bilirubin,Total < 0.39 MG/DL (0.2-1.0); Blood Urea Nitrogen 51 MG/DL (7-18); Calcium 7.8 MG/DL (8.5-10.1); Estimated Glom Filtration Rate 24 ML/MIN; Ferritin 3173.3 ng/ml (26-388); Glucose 129 MG/DL (74-106); Osmolality,Calculated 285.1 MOS/KG (273-304)
[2019-12-19 23:14] LABS: Troponin I 0.064 NG/ML (0.00-0.045)
[2019-12-19 23:16] LABS: Apearance,Urine CLOUDY (Clear); Bilirubin,Urine Negative (Negative); Blood, Urine Large mg/dL (Negative); Glucose,Urine (UA) Negative (Negative); Ketones,Urine Negative (Negative); Nitrite,Urine Negative (Negative); Protein,Urine 100 MG/DL; RBC,Urine 31 /HPF (0-4); Urine Color Amber (Yellow); Urine Specific Gravity 1.008 (1.001-1.035); Urine Urobilinogen < 2.0 EU/DL (0.2-1.0); WBC,Urine 365 /HPF (0-6)
[2019-12-19 23:20] LABS: Barbiturates Screen,Urine Negative (Negative); Benzodiazepines Screen,Urine Negative (Negative); Cannabinoid Screen,Urine Negative (Negative); Opiate Screen,Urine Negative (Negative); Phencyclidine Screen,Urine Negative (Negative)
[2019-12-20] MEDS ORDERED: ONDANSETRON 4 MG/2 ML VIAL IV PRN (00:42)
[2019-12-20] MEDS ORDERED: MAGNESIUM SULF RIDER 4 GM in PREMIX 1 EACH IV PRN (01:33)
[2019-12-20] MEDS ORDERED: MAGNESIUM SULF RIDER 2 GM in PREMIX 1 EACH IV PRN (01:33)
[2019-12-20] MEDS: POTASSIUM CHLORIDE 20 MEQ/15 ML UDCUP PER TUBE PRN ×4 (03:30→10:23)
[2019-12-20] MEDS: cefTRIAXone 1,000 MG in SYRINGE 1 EACH IV SCH (06:38)
[2019-12-20] MEDS: PANTOPRAZOLE 40 MG VIAL IV SCH ×2 (08:33→20:34)
[2019-12-20] MEDS ORDERED: BISACODYL 5 MG TABLET PO PRN (12:37)
[2019-12-20] MEDS ORDERED: ALBUTEROL SULFATE 90 MCG INH PRN (12:37)
[2019-12-20 13:03] LABS: Basophils % 0.3 % (0.0-0.8); Eosinophils % 0.6 % (0.00-10.9); Hematocrit 26.1 VOL% (42.0-52.0); Immature Granulocytes % 0.9 %; Immature Granulocytes Absolute 0.03 #; Lymphocytes % 29.5 % (21.2-54.2); Mean Corpuscular HGB Conc 31.8 GM/DL (32-36); Mean Corpuscular Volume 99.6 FL (87-102); Mean Platelet Volume 9.3 FL (9.6-12.0); Monocytes % 3.8 % (1.7-12.7); Neutrophils % 64.9 % (38.7-73.9); Platelet Count 132 T/CUMM (130-400); Red Blood Count 2.62 MC/CUMM (3.8-5.5); Red Cell Distribution Width 18.4 % (9.3-17.3); White Blood Count 3.4 T/CUMM (4-12)
[2019-12-20 13:04] LABS: Hemoglobin 8.3 GM/DL (14.0-18.0)
[2019-12-20 13:23] LABS: Band Neutrophils 4 % (0-10); Lymphocytes 34 % (20-55); Segmented Neutrophils 60 % (50-85); Total Cells Counted 100
[2019-12-20 13:24] LABS: Hypochromasia Slight; Platelet Estimate Normal
[2019-12-20 13:30] LABS: Calcium 7.7 MG/DL (8.5-10.1); Osmolality,Calculated 290.3 MOS/KG (273-304)
[2019-12-20] MEDS ORDERED: FUROSEMIDE 40 MG/4 ML VIAL IV ONE (14:00)
[2019-12-21 05:56] LABS: Basophils % 0.4 % (0.0-0.8); Eosinophils % 0.8 % (0.00-10.9); Hematocrit 26.7 VOL% (42.0-52.0); Hemoglobin 8.6 GM/DL (14.0-18.0); Immature Granulocytes % 0.8 %; Immature Granulocytes Absolute 0.02 #; Lymphocytes # 0.7 10*3/uL (1.4-4.0); Lymphocytes % 27.1 % (21.2-54.2); Mean Corpuscular HGB Conc 32.2 GM/DL (32-36); Mean Corpuscular Volume 97.8 FL (87-102); Mean Platelet Volume 9.2 FL (9.6-12.0); Monocytes % 3.5 % (1.7-12.7); Neutrophils % 67.4 % (38.7-73.9); Platelet Count 146 T/CUMM (130-400); Red Blood Count 2.73 MC/CUMM (3.8-5.5); Red Cell Distribution Width 18.4 % (9.3-17.3); White Blood Count 2.6 T/CUMM (4-12)
[2019-12-21 06:38] LABS: Calcium 8.3 MG/DL (8.5-10.1); Osmolality,Calculated 287.4 MOS/KG (273-304)
[2019-12-21 07:03] LABS: Atypical Lymphocytes Few; Band Neutrophils 2 % (0-10); Eosinophils 2 % (0-10); Lymphocytes 20 % (20-55); Promyelocytes 2 %; Segmented Neutrophils 70 % (50-85); Total Cells Counted 100
[2019-12-21 07:04] LABS: Anisocytosis 1+; Hypochromasia Slight; Platelet Estimate Adequate
[2019-12-21] MEDS: ESCITALOPRAM 10 MG TABLET PO SCH (08:22)
[2019-12-21] MEDS: AMIODARONE 200 MG TABLET PO SCH (08:22)
[2019-12-21] MEDS: MULTIVITAMIN (CENTRUM) TABLET PO SCH (08:22)
[2019-12-21] MEDS: FUROSEMIDE 40 MG TABLET PO SCH (08:22)
[2019-12-21] MEDS: PANTOPRAZOLE 40 MG VIAL IV SCH ×2 (08:23→21:57)
[2019-12-21] MEDS: cefTRIAXone 1,000 MG in SYRINGE 1 EACH IV SCH (08:23)
[2019-12-21] MEDS: MEROPENEM 500 MG in SODIUM CHLORIDE 0.9% 100 ML IV SCH ×2 (11:32→22:39)
[2019-12-21] MEDS: ANORO INH SCH (11:42)
[2019-12-21] MEDS: ZINC OXIDE PASTE 113 GM TUBE TOP SCH (21:57)
[2019-12-22] MEDS: ACETAMINOPHEN 325 MG TABLET PO PRN (00:52)
[2019-12-22 06:19] LABS: Basophils % 0.7 % (0.0-0.8); Eosinophils % 1.1 % (0.00-10.9); Hematocrit 26.6 VOL% (42.0-52.0); Hemoglobin 8.5 GM/DL (14.0-18.0); Immature Granulocytes % 1.1 %; Immature Granulocytes Absolute 0.03 #; Lymphocytes % 35.3 % (21.2-54.2); Mean Corpuscular Volume 98.2 FL (87-102); Mean Platelet Volume 9.1 FL (9.6-12.0); Monocytes % 4.7 % (1.7-12.7); Neutrophils % 57.1 % (38.7-73.9); Platelet Count 128 T/CUMM (130-400); Red Blood Count 2.71 MC/CUMM (3.8-5.5); Red Cell Distribution Width 18.2 % (9.3-17.3); White Blood Count 2.8 T/CUMM (4-12)
[2019-12-22 06:37] LABS: Calcium 8.2 MG/DL (8.5-10.1); Osmolality,Calculated 281.8 MOS/KG (273-304)
[2019-12-22 07:43] LABS: Band Neutrophils 5 % (0-10); Eosinophils 2 % (0-10); Lymphocytes 41 % (20-55); Segmented Neutrophils 50 % (50-85); Total Cells Counted 100
[2019-12-22 07:44] LABS: Anisocytosis 1+; Hypochromasia 1+; Microcytosis 1+; Ovalocytes Slight; Platelet Estimate Adequate
[2019-12-22] MEDS: PANTOPRAZOLE 40 MG VIAL IV SCH ×2 (08:55→21:27)
[2019-12-22] MEDS: ZINC OXIDE PASTE 113 GM TUBE TOP SCH ×2 (08:56→21:28)
[2019-12-22] MEDS: MULTIVITAMIN (CENTRUM) TABLET PO SCH (08:57)
[2019-12-22] MEDS: POTASSIUM CHLORIDE 20 MEQ/15 ML UDCUP PER TUBE PRN ×4 (08:58→16:49)
[2019-12-22] MEDS: AMIODARONE 200 MG TABLET PO SCH (08:58)
[2019-12-22] MEDS: ESCITALOPRAM 10 MG TABLET PO SCH (08:58)
[2019-12-22] MEDS: FUROSEMIDE 40 MG TABLET PO SCH (08:58)
[2019-12-22] MEDS: MEROPENEM 500 MG in SODIUM CHLORIDE 0.9% 100 ML IV SCH ×2 (11:00→22:02)
[2019-12-22] MEDS: ANORO INH SCH (14:13)
[2019-12-23] MEDS: ACETAMINOPHEN 325 MG TABLET PO PRN (03:55)
[2019-12-23 05:18] LABS: Basophils % 0.4 % (0.0-0.8); Eosinophils % 1.2 % (0.00-10.9); Hematocrit 26.4 VOL% (42.0-52.0); Hemoglobin 8.5 GM/DL (14.0-18.0); Immature Granulocytes % 2.4 %; Immature Granulocytes Absolute 0.06 #; Lymphocytes # 0.9 10*3/uL (1.4-4.0); Lymphocytes % 35.6 % (21.2-54.2); Mean Corpuscular HGB Conc 32.2 GM/DL (32-36); Mean Corpuscular Volume 97.4 FL (87-102); Monocytes % 4.3 % (1.7-12.7); Neutrophils % 56.1 % (38.7-73.9); Platelet Count 129 T/CUMM (130-400); Red Blood Count 2.71 MC/CUMM (3.8-5.5); Red Cell Distribution Width 17.7 % (9.3-17.3); White Blood Count 2.5 T/CUMM (4-12)
[2019-12-23 05:31] LABS: Calcium 7.9 MG/DL (8.5-10.1)
[2019-12-23 08:17] VITALS: BP 104/57
[2019-12-23] MEDS: AMIODARONE 200 MG TABLET PO SCH (08:38)
[2019-12-23] MEDS: ZINC OXIDE PASTE 113 GM TUBE TOP SCH (08:38)
[2019-12-23] MEDS: PANTOPRAZOLE 40 MG VIAL IV SCH (08:38)
[2019-12-23] MEDS: ESCITALOPRAM 10 MG TABLET PO SCH (08:38)
[2019-12-23] MEDS: MULTIVITAMIN (CENTRUM) TABLET PO SCH (08:38)
[2019-12-23] MEDS: ANORO INH SCH (08:40)
== END 2019-12-23 13:22 | DRG 811 ==
LOC: N.ED 21:13 → N.EDINP 12-20 00:26 → SUATTDRO 12-20 00:26 → N.2E 12-20 00:35 → N.4E 12-20 16:54
PROVIDERS: ADMIT Internal Medicine; ATTEND Hospitalist